=== PATIENT | male | born 1980 | race Caucasian/White ===

== ENCOUNTER 2016-09-16 20:14 | Emergency (ER) | payer OTHER, BC ==
[2016-09-16 20:18] VITALS: BP 148/93; PULSE 98; TEMP 98; BMI 33.9
[2016-09-16] MEDS ORDERED: IBUPROFEN 400 MG TABLET (FP) PO ONE ×2 (20:50→20:52)
--- NOTE | 2016-09-16 21:14 | PDOC ---
History of Present Illness - General Chief Complaint: Injury Stated Complaint: FALL/ WORK RELATED Time Seen by Provider: 09/16/16 20:34 - History of Present Illness Initial Comments: 09/16/16 21:24 CHIEF COMPLAINT: knee pain HISTORY OF PRESENT ILLNESS: 36 yo M with hx of diabetes presents to fast track with knee pain s/p fall. Patient was going home from work, slipped on ice and fell on his knee and side. PAtient denies injury to head or any LOC. No recent travel or sick contacts. 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 Denies tobacco, alcohol, illicit drug use. SURGICAL HISTORY: Denies ALLERGIES: No known drug allergies REVIEW OF SYSTEMS General/Constitutional: Denies fever or chills. Denies weakness, weight change. HEENT: Denies change in vision. Denies ear pain or discharge. Denies sore throat. Cardiovascular: Denies chest pain or shortness of breath. Respiratory: Denies cough, wheezing, or hemoptysis. Gastrointestinal: Denies nausea, vomiting, diarrhea or constipation. Denies rectal bleeding. Genitourinary: Denies dysuria, frequency, or change in urination. Musculoskeletal: Denies joint or muscle swelling or pain. Denies neck or back pain. Skin and breasts: Denies rash or easy bruising. Neurologic: Denies headache, vertigo, loss of consciousness, or loss of sensation. PHYSICAL EXAM General Appearance: Well-appearing, appropriately dressed. No apparent distress , no intoxication. HEENT: EOMI, PERRLA, normal ENT inspection, normal voice, TMs normal, pharynx normal. No conjunctival pallor. No photophobia, scleral icterus. Neck: Supple. Trachea midline. No tenderness, rigidity, carotid bruit, stridor , lymphadenopathy, or thyromegaly. Respiratory/Chest: Lungs CTAB. No shortness of breath, chest tenderness, respiratory distress, accessory muscle use. No crackles, rales, rhonchi, stridor , wheezing, dullness Cardiovascular: RRR. S1, S2. No JVD, murmur, bradycardia, tachycardia. Vascular Pulses: Dorsalis-Pedis (R): 2+, Dorsalis-Pedis (L): 2+ Gastrointestinal/Abdominal: Normal bowel sounds. Abdomen soft, non-distended. No tenderness or rebound tenderness. No organomegaly, pulsatile mass, guarding , hernia, hepatomegaly, splenomegaly. Lymphatic: No adenopathy, tenderness. Musculoskeletal/Extremities: Developing ecchymosis to L anterior knee. Normal inspection. FROM of all extremities, normal capillary refill. Pelvis Stable. No CVA tenderness. No tenderness to extremities, pedal edema, swelling, erythema or deformity. Integumentary: Appropriate color, dry, warm. 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 Fully oriented, alert. Appropriate mood/affect. Motor strength 5/5. No appreciable EOM palsy, facial droop or sensory deficit. Past History - Past Medical History Allergies/Adverse Reactions: Allergies Allergy/AdvReac Type Severity Reaction Status Date / Time No Known Allergies Allergy Verified 09/16/16 20:16 Home Medications: Ambulatory Orders Cyclobenzaprine HCl [Flexeril -] 10 mg PO HS #7 tablet 09/16/16 Ibuprofen 800 mg PO TID PRN #21 tablet 09/16/16 Anemia: No Asthma: No Cancer: No Cardiac Disorders: Yes (STARK PARKINSON WHITE.) CVA: No COPD: No CHF: No Dementia: No Diabetes: Yes GI Disorders: No Disorders: No HTN: Yes Hypercholesterolemia: No Liver Disease: No Suicide Attempt (Hx): No Seizures: No Thyroid Disease: No - Surgical History Orthopedic Surgery: Yes (Rt Knee arthroscopic) - Immunization History Td Vaccination: Yes Immunization Up to Date: No - Psycho/Social/Smoking Cessation Hx Anxiety: No Suicidal Ideation: No Smoking Status: No Smoking History: Never smoked Have you smoked in the past 12 months: No Number of Cigarettes Smoked Daily: 0 Hx Alcohol Use: Yes (SOCIAL) Drug/Substance Use Hx: No Substance Use Type: None Hx Substance Use Treatment: No Trauma Specific PMHX - Complaint Specific PMHX Back Injury: Yes *Physical Exam - Vital Signs Last Vital Signs Temp Pulse Resp BP Pulse Ox 98 F 98 H 18 148/93 98 09/16/16 20:16 09/16/16 20:16 09/16/16 20:16 09/16/16 20:16 09/16/16 20:16 Medical Decision Making - Medical Decision Making 09/16/16 21:25 36 yo M with hx of diabetes presents to fast track with pain to L knee s/p fall. -800 mg ibuprofen -x-ray left knee sent to pharm Patient states he also has a little back pain but has chronic back pain. -cyclobenzaprine, ibuprofen rx sent to pharm Advised patient to take meds as prescribed. Advised patient to f/u with ortho if pain persists. Advised patient of signs and symptoms for return to ER; patient verbalized understanding and agrees to plan. *DC/Admit/Observation/Transfer Diagnosis at time of Disposition: Fall Qualifiers: Encounter type: initial encounter Qualified Code(s): W19.XXXA - Unspecified fall, initial encounter Knee pain, acute Qualifiers: Laterality: left Qualified Code(s): M25.562 - Pain in left knee Chronic back pain Qualifiers: Back pain location: low back pain Back pain laterality: unspecified Sciatica presence: without sciatica Qualified Code(s): M54.5 - Low back pain - Discharge Dispostion Disposition: HOME Condition at time of disposition: Stable Admit: No - Prescriptions Prescriptions: Cyclobenzaprine HCl [Flexeril -] 10 mg PO HS #7 tablet Ibuprofen 800 mg PO TID PRN #21 tablet PRN Reason: Pain - Referrals Referrals: Steven Brown MD [Primary Care Provider] - Chase Morelos MD [Staff Physician] - - Patient Instructions Printed Discharge Instructions: DI for Low Back Pain, DI for Knee Pain, How To Perform RICE (Rest, Ice, Compress, Elevate) Additional Instructions: Please take medications as prescribed and follow up with orthopedics if pain persists. If you experience any loss of sensation, numbness or tingling of your leg, loss of bowel or bladder function, or any new or worsening symptoms, please return to the ER. - Post Discharge Activity Work/School Note: Back to Work
== END 2016-09-16 21:43 | disposition home or self-care (01) ==
LOC: JERFT 20:14
DX: M25.562 Pain in left knee (principal); M54.5 Low back pain; G89.29 Other chronic pain; W00.2XXA Other fall from one level to another due to ice and snow, initial encounter; Y93.01 Activity, walking, marching and hiking; Y92.238 Other place in hospital as the place of occurrence of the external cause; Y99.0 Civilian activity done for income or pay; E11.9 Type 2 diabetes mellitus without complications
CPT/HCPCS: 73562-TC-LT; 99281-25

== ENCOUNTER 2018-07-04 07:10 | Inpatient (IN) | payer BC, OTHER ==
--- NOTE | 2018-07-04 07:44 | PDOC ---
History of Present Illness - General Chief Complaint: Pain, Acute Stated Complaint: ABD PAIN Time Seen by Provider: 07/04/18 07:44 - History of Present Illness Initial Comments: 07/04/18 07:44 Mr. Bansal is a 38 yo male w/ pmh of WPW, HTN, IDDM who presents for evaluation of 2 day history of nausea and vomiting. Patient reports it began last night and got worse after he ate some baked ziti. Patient endorses vomiting once last night and once today with an additional episode of diarrhea this AM. All were non-blood (vomit non-bilious as well). Patient additionally endorses midline abdominal pain. Of note, several of patient's family members have had GB removed. The patient denies chest pain, shortness of breath, headache and dizziness. Denies fever, chills, and constipation. Denies dysuria, frequency, urgency and hematuria. Past History - Past Medical History Allergies/Adverse Reactions: Allergies Allergy/AdvReac Type Severity Reaction Status Date / Time No Known Allergies Allergy Verified 09/16/16 20:16 Home Medications: Ambulatory Orders Dulaglutide [Trulicity] 1.5 mg SQ WEEKLY 07/04/18 Esomeprazole Magnesium [Nexium 24Hr] 20 mg PO DAILY 07/04/18 Metformin HCl [Glucophage] 1,000 mg PO BID 07/04/18 Anemia: No Asthma: No Cancer: No Cardiac Disorders: Yes (STARK PARKINSON WHITE.) CVA: No COPD: No CHF: No Dementia: No Diabetes: Yes GI Disorders: No Disorders: No HTN: Yes Hypercholesterolemia: No Liver Disease: No Seizures: No Thyroid Disease: No - Surgical History Orthopedic Surgery: Yes (Rt Knee arthroscopic) - Immunization History Td Vaccination: Yes Immunization Up to Date: No - Suicide/Smoking/Psychosocial Hx Smoking Status: No Smoking History: Never smoked Have you smoked in the past 12 months: No Number of Cigarettes Smoked Daily: 0 Hx Alcohol Use: No Drug/Substance Use Hx: No Substance Use Type: None Hx Substance Use Treatment: No Review of Systems - Review of Systems Comments:: 07/04/18 07:44 GENERAL/CONSTITUTIONAL: No fever or chills. No weakness. HEAD, EYES, EARS, NOSE AND THROAT: No change in vision. No ear pain or discharge. No sore throat. CARDIOVASCULAR: No chest pain or shortness of breath RESPIRATORY: No cough, wheezing, or hemoptysis. GASTROINTESTINAL: No nausea, vomiting, diarrhea or constipation. GENITOURINARY: No dysuria, frequency, or change in urination. MUSCULOSKELETAL: No joint or muscle swelling or pain. No neck or back pain. SKIN: No rash NEUROLOGIC: No headache, vertigo, loss of consciousness, or change in strength/ sensation. ENDOCRINE: No increased thirst. No abnormal weight change HEMATOLOGIC/LYMPHATIC: No anemia, easy bleeding, or history of blood clots. ALLERGIC/IMMUNOLOGIC: No hives or skin allergy. *Physical Exam - Vital Signs Last Vital Signs Temp Pulse Resp BP Pulse Ox 98.6 F 122 H 16 119/80 97 07/04/18 07:23 07/04/18 07:23 07/04/18 07:23 07/04/18 07:23 07/04/18 07:23 - Physical Exam Comments: 07/04/18 07:44 GENERAL: Awake, alert, and fully oriented, in no acute distress HEAD: No signs of trauma, normocephalic, atraumatic EYES: PERRLA, EOMI, sclera anicteric, conjunctiva clear ENT: Auricles normal inspection, hearing grossly normal, nares patent, oropharynx clear without exudates. Moist mucosa NECK: Normal ROM, supple, no lymphadenopathy, JVD, or masses LUNGS: No distress, speaks full sentences, clear to auscultation bilaterally HEART: Regular rate and rhythm, normal S1 and S2, no murmurs, rubs or gallops, peripheral pulses normal and equal bilaterally. ABDOMEN: Soft, nontender, normoactive bowel sounds. No guarding, no rebound. No masses EXTREMITIES: Normal inspection, Normal range of motion, no edema. No clubbing or cyanosis. NEUROLOGICAL: Cranial nerves II through XII grossly intact. Normal speech, normal gait, no focal sensorimotor deficits SKIN: Warm, Dry, normal turgor, no rashes or lesions noted. ED Treatment Course - LABORATORY CBC & Chemistry Diagram: 07/04/18 08:30 07/04/18 08:30 Medical Decision Making - Medical Decision Making 07/04/18 11:19 Mr. Bansal is a 38 yo male w/ pmh as described who presents for evaluation of symptoms concerning for GERD vs. cholecystitis. Evaluation started with US for evaluation as well as pre-op labs and symptomatic relief w/ fluids, pepcid, maalox. 07/04/18 15:18 Patient US significant for cholelithiasis w/out over signs of cholecystitis. Patient discussed with surgery team who recommended CT abd/pelvis w/ IV/oral contrast. This was done with findings again consistent w/ cholelithiasis w/out signs of cholecystitis. Admitting patient for further evaluation and surgical consult. *DC/Admit/Observation/Transfer Diagnosis at time of Disposition: Cholecystitis - Discharge Dispostion Decision to Admit order: Yes - Referrals Referrals: Steven Brown MD [Primary Care Provider] - - Patient Instructions - Post Discharge Activity
[2018-07-04] MEDS ORDERED: SODIUM CHLORIDE 1,000 ML IV STA ×2 (07:53→11:27)
[2018-07-04] MEDS ORDERED: FAMOTIDINE 20 MG/50 ML IVPB 20 MG/50 ML MG IVPB ONE ×2 (07:54→08:34)
[2018-07-04] MEDS ORDERED: MAG HYDROX/AL HYDROX/SIMETH 30 ML UNIT-DOSE CUP PO ONE (07:54)
[2018-07-04] MEDS ORDERED: ONDANSETRON 4 MG/2 ML VIAL IVPUSH ONE (07:56)
[2018-07-04] MEDS ORDERED: ONDANSETRON 4 MG/2 ML VIAL ONE (08:34)
[2018-07-04] MEDS ORDERED: MAG HYDROX/AL HYDROX/SIMETH 30 ML UNIT-DOSE CUP ONE (08:34)
[2018-07-04 08:59] LABS: BASO % 0.2 % (0-2.0); EOS % 4.7 % (0-4.5); HEMATOCRIT 48.5 % (35.4-49); HEMOGLOBIN 16.4 GM/dL (11.7-16.9); LYMPH % 6.6 % (8-40); MCH 28.8 pg (25.7-33.7); MCHC 33.9 g/dl (32.0-35.9); MEAN CELL VOLUME 84.9 fl (80-96); MEAN PLT VOLUME 8.4 fl (7.5-11.1); MONO % 5.6 % (3.8-10.2); NEUT % 82.9 % (42.8-82.8); PLATELET COUNT 182 K/MM3 (134-434); RBC 5.72 M/mm3 (4.00-5.60); RDW 13.1 % (11.9-15.9)
[2018-07-04 09:07] LABS: INR 1.14 (0.83-1.09); PROTHROMBIN TIME (PATIENT) 13.5 SEC (9.7-13.0)
[2018-07-04 09:10] LABS: ACTIVATED PTT 27.5 SECONDS (25.2-36.5)
--- NOTE | 2018-07-04 10:12 | PDOC ---
Attending Attestation - Resident Resident Name: DestinprincenatiRah - ED Attending Attestation I have performed the following: I have examined & evaluated the patient, The case was reviewed & discussed with the resident, I agree w/resident's findings & plan - HPI HPI: 07/04/18 10:04 38y/o M h/o WPW p/w persistent epigastric pain with n/v since yesterday. similar episode 2 weeks ago resolved, started himself on nexium with temporary improvement, but pain returned now since last night, n/v again. no f/c, no cp - Physicial Exam PE: 07/04/18 10:12 afebrile, tachy, uncomfortable no jaundice/pallor s1s2 rrr, ctab soft/nd. diffuse discomfort to palpation, guarding in RUQ with positive figueredo' s. no cvat no rash - Medical Decision Making 07/04/18 10:12 38y/o M with worsening epigastric pain/n/v. exam localized to ruq, concerning for gallbladder disease (family with same), r/o gastritis/pancreatitis, less likely urine. labs, ua ekg ruq sono pain control, nausea control reassess Heart Score/ECG Review #1 ECG reviewed & interpreted by me at: 08:33 General ECG Interpretation: Sinus Rhythm, Normal Rate (104), Normal Intervals ( WPW, qtc 502), No acute ischemic changes (st with TWI I/AVL)
[2018-07-04 10:13] LABS: ALBUMIN 3.7 g/dl (3.4-5.0); ALK PHOS 25 U/L (45-117); BILIRUBIN,TOTAL 0.9 mg/dL (0.2-1); BLOOD UREA NITROGEN 21 mg/dL (7-18); CALCIUM 8.3 mg/dL (8.5-10.1); CO2 30 mmol/L (21-32); CREATININE 0.8 mg/dL (0.55-1.3); GLUCOSE,RANDOM 170 mg/dL (74-106); LIPASE 144 U/L (73-393); POTASSIUM 4.3 mmol/L (3.5-5.1); SGOT/AST 8 U/L (15-37); SGPT/ALT 19 U/L (13-61); SODIUM 139 mmol/L (136-145); TOT PROT 6.2 g/dl (6.4-8.2)
[2018-07-04 10:21] LABS: ANION GAP 8 MMOL/L (8-16); CHLORIDE 102 mmol/L (98-107)
[2018-07-04] MEDS ORDERED: morphine CARPU-JECT 4 MG/1 ML DISP.SYRIN IVPUSH ONE (11:55)
--- NOTE | 2018-07-04 12:29 | EKG ---
Test Reason : Blood Pressure : / mmHG Vent. Rate : 104 BPM Atrial Rate : 104 BPM P-R Int : 126 ms QRS Dur : 116 ms QT Int : 382 ms P-R-T Axes : 062 -34 110 degrees QTc Int : 502 ms SINUS TACHYCARDIA [id number] PATTERN ABNORMAL ECG Confirmed by MD TIFFANY, REHAN ([id number]) on 07/04/2018 12:29:41 PM Referred By: Confirmed By:REHAN ALLEN MD
[2018-07-04] MEDS ORDERED: MORPHINE SULFATE 2 MG/ML VIAL ONE (13:23)
[2018-07-04] MEDS: SODIUM CHLORIDE 1,000 ML IV SCH (13:36)
[2018-07-04] MEDS ORDERED: ONDANSETRON 4 MG/2 ML VIAL IVPUSH PRN (16:19)
--- NOTE | 2018-07-04 16:27 | HP ---
Admitting History and Physical - Primary Care Physician PCP: Steven Brown - Admission Chief Complaint: Epigastric pain with nausea and vomiting History of Present Illness: 38 yrs old male H/O WPW EKG (no arrythmia), T2DM , Gastritis (scoped in 2011) present with c/o nausea, epigastric pain and 2 episodes of vomiting started last night after having, patient had an episode of vomiting contains ingested food followed by nausea and epigastric pain, intermittent 8/10, 2nd episode of vomiting this am , also c/o subjective chills denies any diarrhea or constipation, patient has family H/O Gal stone brother and father both have cholycystectomy at young age in the ED w/u shows elevated TWBC, normal lFTs, CT abd and ultrasound shows Cholelthiasis no acute cholycystitis, evaluted by Surgery consult. 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 Home Medications - Allergies Allergies/Adverse Reactions: Allergies Allergy/AdvReac Type Severity Reaction Status Date / Time No Known Allergies Allergy Verified 09/16/16 20:16 - Home Medications Home Medications: Ambulatory Orders Dulaglutide [Trulicity] 1.5 mg SQ WEEKLY 07/04/18 Esomeprazole Magnesium [Nexium 24Hr] 20 mg PO DAILY 07/04/18 Metformin HCl [Glucophage] 1,000 mg PO BID 07/04/18 Family Disease History - Family Disease History Family Disease History: Diabetes: Father (Cholelthiasis), Other: Father, Brother (Cholelthiasis) Review of Systems - Review of Systems Constitutional: reports: Chills, Diaphoresis, Lethargy. denies: Fever Eyes: denies: Blind Spots, Blurred Vision, Double Vision HENT: denies: Difficult Swallowing, Ear Discharge Neck: denies: Decreased ROM, Lumps, Pain on Movement Cardiovascular: denies: Chest Pain, Edema, Palpitations Respiratory: denies: Cough, Exercise Intolerance, Hemoptysis Gastrointestinal: reports: Abdominal Pain, Bloating, Nausea, Vomiting Genitourinary: denies: Burning, Discharge, Dysuria Musculoskeletal: reports: Back Pain, Crepitus, Decreased ROM Neurological: denies: Change in LOC, Change in Speech, Confusion Endocrine: denies: Excessive Sweating, Flushing, Increased Hunger Hematology/Lymphatic: denies: Easily Bruised Physical Examination Vital Signs: Vital Signs Temperature 98.6 F 07/04/18 15:18 Pulse Rate 100 H 07/04/18 15:18 Respiratory Rate 16 07/04/18 15:18 Blood Pressure 113/82 07/04/18 15:18 O2 Sat by Pulse Oximetry (%) 97 07/04/18 15:18 Constitutional: Yes: Well Nourished, Mild Distress HENT: Yes: Atraumatic, Normocephalic Neck: Yes: Supple, Trachea Midline, Decreased ROM Respiratory: Yes: CTA Bilaterally Gastrointestinal: Yes: Normal Bowel Sounds, Tenderness, Epigastrium, Vomiting, Other (Rt UQ Tenderness) Edema: No Edema: RUE: 1+, LLE: 1+ Peripheral Pulses: Left Doralis Pedis: 1+, Right Dorsalis Pedis: 1+ Neurological: Yes: Alert, Oriented, Cran Nerves II-XII Intact ...Motor Strength: WNL, LUE, LLE, RUE, RLE Labs: CBC, BMP 07/04/18 08:30 07/04/18 08:30 Imaging - Results Cat Scan: Report Reviewed (Cholelithiasis) Ultrasound: Report Reviewed (Cholelthiasis) Problem List - Problems (1) Abdominal pain Assessment/Plan: Present with abd nausea, vomiting, elevated TWBC , CT abd and ultrasound shows cholelthiasis normal lipse, CBD and LFTs possibility of billiarry colick evaluated by Surgery consult recommended HIDA scan F/U serial CBC and abd exam, GI consult. Code(s): R10.9 - UNSPECIFIED ABDOMINAL PAIN (2) Cholelithiasis Assessment/Plan: No Radiological signs of acute cholycystitis will F/U surgery recommendations Code(s): K80.20 - CALCULUS OF GALLBLADDER W/O CHOLECYSTITIS W/O OBSTRUCTION (3) Nausea & vomiting Assessment/Plan: IV Zofran and PPI f/u GI recommendations Code(s): R11.2 - NAUSEA WITH VOMITING, UNSPECIFIED Qualifiers: Vomiting type: unspecified Vomiting Intractability: non-intractable Qualified Code(s): R11.2 - Nausea with vomiting, unspecified (4) DMII (diabetes mellitus, type 2) Assessment/Plan: Hold Home meds F/U Accucheck q 6 hrly with correction dose insulin Code(s): E11.9 - TYPE 2 DIABETES MELLITUS WITHOUT COMPLICATIONS (5) Leukocytosis Assessment/Plan: most likely reactive will observe closely off abx Code(s): D72.829 - ELEVATED WHITE BLOOD CELL COUNT, UNSPECIFIED Qualifiers: Leukocytosis type: bandemia Qualified Code(s): D72.825 - Bandemia (6) Lysev-Uuucricvs-Iysao (WPW) syndrome Assessment/Plan: No H/O Plapittaion or arrythmia no active issue Code(s): I45.6 - PRE-EXCITATION SYNDROME
[2018-07-04 16:51] LABS: URINE APPEARANCE Clear; URINE BILIRUBIN Negative (<2.0 mg/dL); URINE COLOR Yellow; URINE GLUCOSE (UA) Negative (NEGATIVE); URINE KETONE 1+ (NEGATIVE); URINE LEUK ESTERASE Negative (NEGATIVE); URINE NITRITE Negative (NEGATIVE); URINE PROTEIN 1+ (NEGATIVE)
[2018-07-04] MEDS: INSULIN SLIDING SCALE (NOVOLOG) 1 VIAL SQ SCH ×2 (17:21→21:54)
--- NOTE | 2018-07-04 17:42 | CONSULT ---
Consult Consult Specialty:: General Surgery Referred by:: Dr. Sarmiento Reason for Consultation:: cholelithiasis, abd pain, leukocytosis - History of Present Illness Chief Complaint: epigastric pain, n/v, diarrhea History of Present Illness: 38yo obese M with WPW, DM2, h/o gastritis, esophageal candidiasis, prepyloric erosions on EGD 2011 (Dr. Grande), began having epigastric pain about 2 wks ago, which came and went, but was not fully relieved with daily Nexium and tums , associated with mild subjective f/c and maybe some diarrhea, lasted 4-5 days, then returned yesterday, associated with N/V, subjective chills and night sweating, diarrhea this morning, prompting ER visit. He had US showing stones and negative HIDA with normal EF 2013 by review of [facility]. His mother, father and brother have all had their gallbladders removed, the latter just last month. He describes his pain as epigastric in distribution, not really favoring one side or the other. He had ziti last meal, and vomit was mostly food. In ER, his wbc is 18K, LFTs and lipase are normal, BUN 21 with normal Cr, 1+ ketones in urine, glucose ok. US was done showing gallstones but no sign of cholecystitis. CT was then done showing only that as well, no clear source for leukocytosis. He has had IVF, and surgery is asked to assess. He is seen in ER holding with father at bedside. He has just returned from bathroom, having had some urine and diarrhea (presumed from oral contrast). His pain is better, but he did have morphine earlier. He is not hungry. - History Source History Provided By: Patient Limitations to Obtaining History: No Limitations - Past Medical History Cardio/Vascular: Yes: Other (pgxyg-jaycfqwrm-wokxt Syndrome) Gastrointestinal: Yes: Gastritis (prepyloric erosions at EGD 2013), Other ( esophageal candidiasis 2013) Hepatobiliary: Yes: Cholelithiasis Musculoskeletal: Yes: Chronic low back pain (and knee pain) Endocrine: Yes: Diabetes Mellitus - Past Surgical History Past Surgical History: Yes: Tonsillectomy, Upper Endoscopy (2013 [facility]) - Alcohol/Substance Use Hx Alcohol Use: Yes (social/occasional) History of Substance Use: reports: None - Smoking History Smoking history: Never smoked Have you smoked in the past 12 months: No - Social History Usual Living Arrangement: With Parent ADL: Independent 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 also uses Aleve 1-2 in am some days for back/knee pain - last 2- 3 days ago;. ibuprofen 400-600mg some evenings for same - also not in last few days Family Disease History - Family Disease History Family Disease History: Diabetes: Father (aflutter/fib s/p ablation x2; gallbladder out), Heart Disease: Father, Other: Father, Mother (htn; gallbladder out), Brother (gallbladder out) Review of Systems - Review of Systems Constitutional: reports: Chills, Fever (subjective with hpi), Loss of Appetite, Night Sweats (with hpi), Unintentional Wgt. Loss (partly - has lost ~100lbs in 2 yrs, partly intentional, partly not (related to diabetes? per pt)) Eyes: denies: Blurred Vision, Recent Change in Vision HENT: denies: Difficult Swallowing, Throat Pain Neck: denies: Swollen Glands, Tenderness Cardiovascular: reports: Palpitations (about once a year, not for a month or two ). denies: Chest Pain Respiratory: denies: Cough, SOB Gastrointestinal: reports: Abdominal Pain (with hpi), Diarrhea (with hpi), Nausea (with hpi), Vomiting (with hpi). denies: Constipation Genitourinary: denies: Burning, Dysuria Musculoskeletal: reports: Back Pain, Joint Pain (knees) Integumentary: denies: Change in Color, Rash Neurological: denies: Dizziness, Headache Physical Exam Vital Signs: Vital Signs Temperature 98.3 F 07/04/18 16:54 Pulse Rate 101 H 07/04/18 16:54 Respiratory Rate 16 07/04/18 16:54 Blood Pressure 113/80 07/04/18 16:54 O2 Sat by Pulse Oximetry (%) 97 07/04/18 15:18 Constitutional: Yes: Well Nourished, No Distress, Calm Eyes: Yes: Conjunctiva Clear, EOM Intact. No: Sclera Icterus HENT: Yes: Atraumatic, Normocephalic Neck: Yes: Supple, Trachea Midline Cardiovascular: Yes: Regular Rate and Rhythm, Other (WPW on EKG). No: Murmur Respiratory: Yes: Regular, CTA Bilaterally Gastrointestinal: Yes: Normal Bowel Sounds, Soft, Abdomen, Obese, Hernia (small umbilical palpable), Tenderness (RUQ and LUQ similar amount, no R/G), Tenderness , Epigastrium. No: Distention, Tenderness, Rebound ...Rectal Exam: Yes: Deferred Renal/: No: CVA Tenderness - Left, CVA Tenderness - Right Musculoskeletal: No: Joint Stiffness, Joint Swelling Extremities: No: Cool, Cyanosis Edema: No Peripheral Pulses WNL: Yes Integumentary: Yes: Tattoos. No: Jaundice, Rash Neurological: Yes: Alert, Oriented. No: Unsteady Gait (ambulating ok) Psychiatric: Yes: Alert, Oriented Labs: CBC, BMP 07/04/18 08:30 07/04/18 08:30 CMP Sodium 139 mmol/L (136-145) 07/04/18 08:30 Potassium 4.3 mmol/L (3.5-5.1) 07/04/18 08:30 Chloride 102 mmol/L (98-107) 07/04/18 08:30 Carbon Dioxide 30 mmol/L (21-32) 07/04/18 08:30 Anion Gap 8 MMOL/L (8-16) 07/04/18 08:30 BUN 21 mg/dL (7-18) H 07/04/18 08:30 Creatinine 0.8 mg/dL (0.55-1.3) 07/04/18 08:30 Creat Clearance w eGFR > 60 (>60) 07/04/18 08:30 POC Glucometer 119.60130 UNITS (80-120) 07/04/18 17:15 Random Glucose 170 mg/dL (74-106) H 07/04/18 08:30 Calcium 8.3 mg/dL (8.5-10.1) L 07/04/18 08:30 Total Bilirubin 0.9 mg/dL (0.2-1) 07/04/18 08:30 AST 8 U/L (15-37) L 07/04/18 08:30 ALT 19 U/L (13-61) 07/04/18 08:30 Alkaline Phosphatase 25 U/L (45-117) L 07/04/18 08:30 Creatine Kinase 79 IU/L (26-308) 07/04/18 08:30 Troponin I < 0.02 ng/ml (0.00-0.05) 07/04/18 08:30 Total Protein 6.2 g/dl (6.4-8.2) L 07/04/18 08:30 Albumin 3.7 g/dl (3.4-5.0) 07/04/18 08:30 Lipase 144 U/L (73-393) 07/04/18 08:30 INR, PTT INR 1.14 (0.83-1.09) H 07/04/18 08:30 Urine Test Results Urine Color Yellow 07/04/18 15:16 Urine Appearance Clear 07/04/18 15:16 Urine pH 6.0 (5.0-8.0) 07/04/18 15:16 Ur Specific Starbuck 1.010 (1.010-1.035) 07/04/18 15:16 Urine Protein 1+ (NEGATIVE) H 07/04/18 15:16 Urine Glucose (UA) Negative (NEGATIVE) 07/04/18 15:16 Urine Ketones 1+ (NEGATIVE) H 07/04/18 15:16 Urine Blood Negative (NEGATIVE) 07/04/18 15:16 Urine Nitrite Negative (NEGATIVE) 07/04/18 15:16 Urine Bilirubin Negative (<2.0 mg/dL) 07/04/18 15:16 Ur Leukocyte Esterase Negative (NEGATIVE) 07/04/18 15:16 dehydrated by labs high wbc but LFTs, lipase normal UA ok but dry Imaging - Results Cat Scan: Report Reviewed, Image Reviewed (images personally reviewed and discussed with Dr. Demarco by phone - gallstones noted, no signs cholecystitis, pancreatitis, appendicitis, diverticulitis, no obstruction, no free air or fluid ) Ultrasound: Report Reviewed, Image Reviewed (images reviewed - + gallstones, no wall thickening or pericholecystic fluid, no ductal dilation, no signs cholecystitis) Problem List - Problems (1) Calculus of gallbladder without cholecystitis without obstruction Assessment/Plan: admitted to medicine NPO/IVF - generous hydration trend labs, including LFTs, lipase would hold on abx for now pain meds prn - would use nonnarcotics (IV tylenol) first line, NO morphine prior to HIDA if pain is still that bad, could use dilaudid low dose GI/DVT prophylaxis - would continue PPI, as pt is on at home; SCDs, ambulation if gallbladder is source of leukocytosis, would expect some abnormalities in imaging other than just stones, and RUQ > LUQ or epigastric pain/tenderness, neither of which are evident would consult GI Dr. Grande, as pt is known to him from prior scope, to consider repeating EGD HIDA scan in am if positive and cystic duct IS blocked, would then start antibiotics and discuss cholecystectomy with pt if negative, further recommendations pending lab trend and GI consultation will follow with you discussed with Dr. Yarbrough Code(s): K80.20 - CALCULUS OF GALLBLADDER W/O CHOLECYSTITIS W/O OBSTRUCTION (2) Epigastric pain Code(s): R10.13 - EPIGASTRIC PAIN (3) Leukocytosis Assessment/Plan: wbc 18 trend in am Code(s): D72.829 - ELEVATED WHITE BLOOD CELL COUNT, UNSPECIFIED Qualifiers: Leukocytosis type: bandemia Qualified Code(s): D72.825 - Bandemia (4) Nausea & vomiting Assessment/Plan: zofran prn Code(s): R11.2 - NAUSEA WITH VOMITING, UNSPECIFIED Qualifiers: Vomiting type: unspecified Vomiting Intractability: non-intractable Qualified Code(s): R11.2 - Nausea with vomiting, unspecified (5) Obfgv-Hkmzdxsxa-Xjsxt (WPW) syndrome Code(s): I45.6 - PRE-EXCITATION SYNDROME (6) Obesity (BMI 30.0-34.9) Code(s): E66.9 - OBESITY, UNSPECIFIED
[2018-07-04 18:10] LABS: EPI CELLS RARE /HPF (FEW); URINE MUCUS MANY
[2018-07-04] MEDS: ACETAMINOPHEN 1000 MG/100 ML VIAL (NON FORMULARY) IVPB PRN (23:58)
[2018-07-05] MEDS: SODIUM CHLORIDE 1,000 ML IV SCH ×3 (00:03→13:38)
[2018-07-05 02:21] VITALS: BMI 31.7
[2018-07-05] MEDS: INSULIN SLIDING SCALE (NOVOLOG) 1 VIAL SQ SCH ×4 (06:14→21:16)
[2018-07-05 07:22] LABS: BASO % 0.2 % (0-2.0); EOS % 15.8 % (0-4.5); HEMATOCRIT 39.2 % (35.4-49); HEMOGLOBIN 13.6 GM/dL (11.7-16.9); LYMPH % 30.3 % (8-40); MCH 29.4 pg (25.7-33.7); MCHC 34.7 g/dl (32.0-35.9); MEAN CELL VOLUME 84.8 fl (80-96); MEAN PLT VOLUME 8.3 fl (7.5-11.1); MONO % 7.9 % (3.8-10.2); NEUT % 45.8 % (42.8-82.8); PLATELET COUNT 142 K/MM3 (134-434); RBC 4.63 M/mm3 (4.00-5.60); WHITE BLOOD COUNT 7.8 K/mm3 (4.0-10.0)
[2018-07-05 08:24] LABS: ALBUMIN 2.9 g/dl (3.4-5.0); ALK PHOS 23 U/L (45-117); ANION GAP 8 MMOL/L (8-16); BILIRUBIN,TOTAL 0.9 mg/dL (0.2-1); BLOOD UREA NITROGEN 20 mg/dL (7-18); CALCIUM 7.5 mg/dL (8.5-10.1); CHLORIDE 108 mmol/L (98-107); CO2 25 mmol/L (21-32); CREATININE 0.6 mg/dL (0.55-1.3); GLUCOSE,RANDOM 81 mg/dL (74-106); POTASSIUM 3.6 mmol/L (3.5-5.1); SGOT/AST 8 U/L (15-37); SGPT/ALT 14 U/L (13-61); SODIUM 141 mmol/L (136-145); TOT PROT 5.1 g/dl (6.4-8.2)
[2018-07-05] MEDS: PANTOPRAZOLE SODIUM 40 MG VIAL IVPUSH SCH (10:17)
[2018-07-05] MEDS: ACETAMINOPHEN 1000 MG/100 ML VIAL (NON FORMULARY) IVPB PRN (13:31)
--- NOTE | 2018-07-05 17:22 | PN ---
Progress Note, Physician Chief Complaint: Mr Bansal complains of epigastric pain. Denies cp or sob. - Current Medication List Current Medications: Active Medications Acetaminophen (Ofirmev Injection -) 1,000 mg IVPB Q6H PRN PRN Reason: Pain Level 4 - 10 Last Admin: 07/05/18 13:31 Dose: 1,000 mg Sodium Chloride (Normal Saline -) 1,000 mls @ 125 mls/hr IV ASDIR [facility] Last Admin: 07/05/18 13:38 Dose: Not Given Insulin Aspart (Novolog Vial Sliding Scale -) 1 vial SQ ACHS [facility]; Protocol Last Admin: 07/05/18 13:38 Dose: Not Given Ondansetron HCl (Zofran Injection) 4 mg IVPUSH Q6H PRN PRN Reason: NAUSEA Pantoprazole Sodium (Protonix Iv) 40 mg IVPUSH DAILY [facility] Last Admin: 07/05/18 10:17 Dose: 40 mg - Objective Vital Signs: Vital Signs Temperature 36.6 C 07/05/18 13:33 Pulse Rate 96 H 07/05/18 13:33 Respiratory Rate 18 07/05/18 13:33 Blood Pressure 126/73 07/05/18 13:33 O2 Sat by Pulse Oximetry (%) 97 07/04/18 21:00 Constitutional: Yes: No Distress, Calm, Obese Cardiovascular: Yes: Regular Rate and Rhythm. No: Gallop, Murmur, Rub Respiratory: Yes: Regular, CTA Bilaterally. No: Rales, Rhonchi, Wheezes Gastrointestinal: Yes: Normal Bowel Sounds, Soft, Tenderness (LUQ). No: Distention Extremities: Yes: WNL Edema: No Labs: CBC, BMP 07/05/18 06:10 07/05/18 06:10 INR, PTT INR 1.14 (0.83-1.09) H 07/04/18 08:30 Problem List - Problems (1) Calculus of gallbladder without cholecystitis without obstruction Assessment/Plan: -appreciate surgery assistance -agree with holding antibiotics -HIDA scan reviewed -surgery to decide if lap david is appropriate in this setting Code(s): K80.20 - CALCULUS OF GALLBLADDER W/O CHOLECYSTITIS W/O OBSTRUCTION (2) Epigastric pain Assessment/Plan: -GI following -planning for EGD Code(s): R10.13 - EPIGASTRIC PAIN (3) Obesity (BMI 30.0-34.9) Assessment/Plan: -outpatient weight loss plan Code(s): E66.9 - OBESITY, UNSPECIFIED (4) DMII (diabetes mellitus, type 2) Assessment/Plan: -SSI Code(s): E11.9 - TYPE 2 DIABETES MELLITUS WITHOUT COMPLICATIONS (5) Iqmtc-Dmytvngfz-Drdhm (WPW) syndrome Assessment/Plan: -noted Code(s): I45.6 - PRE-EXCITATION SYNDROME
--- NOTE | 2018-07-05 17:58 | PN ---
Progress Note, Physician History of Present Illness: 38yo obese M with WPW, DM2, h/o gastritis, esophageal candidiasis, prepyloric erosions on EGD 2011 (Dr. Grande), with epigastric pain associated with n/v, diarrhea. US was done showing gallstones but no sign of cholecystitis. CT was then done showing only that as well, no clear source for leukocytosis. HIDA was done this morning showing gallbladder filling at 20 minutes, fully within the hour, excluding cystic duct obstruction. He is seen in his bed, with father at bedside, having been up ambulating today and had a small formed BM earlier with second time urinating today. His epigastric pain was better earlier, got tylenol a few hours ago, and he now states it is starting to return. He is NPO on fluids, and fingerstick just now is 70. - Current Medication List Current Medications: Active Medications Acetaminophen (Ofirmev Injection -) 1,000 mg IVPB Q6H PRN PRN Reason: Pain Level 4 - 10 Last Admin: 07/05/18 13:31 Dose: 1,000 mg Sodium Chloride (Normal Saline -) 1,000 mls @ 125 mls/hr IV ASDIR [facility] Last Admin: 07/05/18 13:38 Dose: Not Given Insulin Aspart (Novolog Vial Sliding Scale -) 1 vial SQ [facility]; Protocol Last Admin: 07/05/18 17:33 Dose: Not Given Ondansetron HCl (Zofran Injection) 4 mg IVPUSH Q6H PRN PRN Reason: NAUSEA Pantoprazole Sodium (Protonix Iv) 40 mg IVPUSH DAILY [facility] Last Admin: 07/05/18 10:17 Dose: 40 mg - Objective Vital Signs: Vital Signs Temperature 97.9 F 07/05/18 13:33 Pulse Rate 96 H 07/05/18 13:33 Respiratory Rate 18 07/05/18 13:33 Blood Pressure 126/73 07/05/18 13:33 O2 Sat by Pulse Oximetry (%) 97 07/04/18 21:00 Constitutional: Yes: Well Nourished, No Distress, Calm Eyes: Yes: Conjunctiva Clear, EOM Intact HENT: Yes: Atraumatic, Normocephalic Gastrointestinal: Yes: Soft, Abdomen, Obese, Tenderness (RUQ slightly more than LUQ but similar, no R/G, also mild RLQ at first but not on second palpation), Tenderness, Epigastrium ...Rectal Exam: Yes: Deferred Musculoskeletal: No: Joint Stiffness, Joint Swelling Extremities: No: Cool, Cyanosis Integumentary: Yes: Tattoos. No: Jaundice, Rash Neurological: Yes: Alert, Oriented Labs: CBC, BMP 07/05/18 06:10 07/05/18 06:10 CMP Sodium 141 mmol/L (136-145) 07/05/18 06:10 Potassium 3.6 mmol/L (3.5-5.1) 07/05/18 06:10 Chloride 108 mmol/L (98-107) H 07/05/18 06:10 Carbon Dioxide 25 mmol/L (21-32) 07/05/18 06:10 Anion Gap 8 MMOL/L (8-16) 07/05/18 06:10 BUN 20 mg/dL (7-18) H 07/05/18 06:10 Creatinine 0.6 mg/dL (0.55-1.3) 07/05/18 06:10 Creat Clearance w eGFR > 60 (>60) 07/05/18 06:10 POC Glucometer 80 UNITS (80-120) 07/05/18 13:36 Random Glucose 81 mg/dL (74-106) 07/05/18 06:10 Hemoglobin A1c % 6.4 % (4.2-6.3) H 07/05/18 06:10 Calcium 7.5 mg/dL (8.5-10.1) L 07/05/18 06:10 Total Bilirubin 0.9 mg/dL (0.2-1) 07/05/18 06:10 AST 8 U/L (15-37) L 07/05/18 06:10 ALT 14 U/L (13-61) 07/05/18 06:10 Alkaline Phosphatase 23 U/L (45-117) L 07/05/18 06:10 Total Protein 5.1 g/dl (6.4-8.2) L 07/05/18 06:10 Albumin 2.9 g/dl (3.4-5.0) L 07/05/18 06:10 Lipase 143 U/L (73-393) 07/05/18 06:10 wbc down to normal, BUN down slightly, Cr from 0.8 glucose on low side A1C good/normal LFTs and lipase still normal - ....Imaging Other: Report Reviewed, Image Reviewed (HIDA images personally reviewed - gallbladder visualized at 20 min, fills within the hour, no evidence of obstruction of cystic duct) Problem List - Problems (1) Calculus of gallbladder without cholecystitis without obstruction Assessment/Plan: continue NPO/IVF - will change to maintenance fluids trend labs would hold on abx for now pain meds prn - would use nonnarcotics (IV tylenol) first line GI/DVT prophylaxis - would continue PPI, as pt is on at home; SCDs, ambulation GI consulted - saw and spoke with Dr. Knight, who has seen him and agrees with EGD - will try to arrange for tomorrow HIDA negative - doubt gallbladder is primary source of pain, but will await EGD results will follow up Code(s): K80.20 - CALCULUS OF GALLBLADDER W/O CHOLECYSTITIS W/O OBSTRUCTION (2) Epigastric pain Code(s): R10.13 - EPIGASTRIC PAIN (3) Leukocytosis Assessment/Plan: normalized Code(s): D72.829 - ELEVATED WHITE BLOOD CELL COUNT, UNSPECIFIED Qualifiers: Leukocytosis type: bandemia Qualified Code(s): D72.825 - Bandemia (4) Nausea & vomiting Code(s): R11.2 - NAUSEA WITH VOMITING, UNSPECIFIED Qualifiers: Vomiting type: unspecified Vomiting Intractability: non-intractable Qualified Code(s): R11.2 - Nausea with vomiting, unspecified (5) Jftmk-Zmofijcdk-Mqsfi (WPW) syndrome Code(s): I45.6 - PRE-EXCITATION SYNDROME (6) Obesity (BMI 30.0-34.9) Code(s): E66.9 - OBESITY, UNSPECIFIED
--- NOTE | 2018-07-05 18:04 | CONS ---
DATE OF CONSULTATION: 07/05/2018 GASTROINTESTINAL CONSULTATION The patient is a 38-year-old man with a past medical history of Qmzdf-Eerawofws-Nsetr, diabetes and a history of gastritis with esophagitis secondary to candidiasis and erosions on an upper endoscopy which was performed by Dr. Grande in 2011. Apparently, two weeks ago, the patient began having epigastric pain and took Nexium as well as Tums with no clear relief of his symptoms. On Tuesday, he once again describes burning epigastric abdominal pain, this time with nausea, vomiting and a couple episodes of loose bowel movements. He denies any melena or hematochezia in the stool. He has had no fevers or chills. He has had no recent travel or antibiotic use. He states he is feeling somewhat better at this time. He has not had a colonoscopy in the past. PAST MEDICAL AND SURGICAL HISTORY: These are as listed in the HPI. SOCIAL HISTORY: He chews tobacco. He drinks socially very rarely. FAMILY HISTORY: Significant for cholelithiasis. Apparently, each of his parents as well as his brother recently had a cholecystectomy. ALLERGIES: NO KNOWN DRUG ALLERGIES. HOME MEDICATIONS: 1. Trulicity. 2. Nexium. 3. Glucophage. REVIEW OF SYSTEMS: Negative except for pertinent positives in the HPI. PHYSICAL EXAMINATION: Vital Signs: Temperature 97, pulse 96, blood pressure 126/73, respiratory rate 18. General: The patient is in no acute distress. HEENT: Anicteric sclerae. Cardiovascular: S1, S2. Regular rate and rhythm. Lungs: Bilaterally clear to auscultation. Abdomen: Soft and nontender. Extremities: No edema. LABS: White blood cell count on admission 18, currently 7.8. Hemoglobin 13.5, hematocrit 39, MCV 84, platelet count 142, INR 1.1, sodium 141, potassium 3.6, BUN 20, creatinine 0.6, hemoglobin A1c 6.4, calcium 7.5, total bilirubin 0.9, AST 8 , ALT 14, alkaline phosphatase 23, lipase 143. Urine with 1+ protein and 1+ ketones. The patient had an abdominal and pelvic CT scan performed in the emergency room with contrast which revealed cholelithiasis but no other acute pathology. He had a HIDA scan but the final results have not yet been posted. However, it appears to have been within normal limits. IMPRESSION: Epigastric abdominal pain, nausea, vomiting, as well as a couple episodes of loose bowel movements. These findings may be secondary to an infectious etiology. However, peptic ulcer disease cannot be excluded at this time. I doubt his current symptoms are secondary to acute cholecystitis, considering his HIDA scan appears to be normal and his liver tests are within normal limits. However, biliary colic is still included in the differential diagnosis at this time. RECOMMENDATIONS: 1. Protonix 40 mg daily 40 mg IV daily. 2. If final results from the HIDA scan are normal, would start him on a clear liquid diet; a.m. labs ; avoid NSAIDs. 3. I will tentatively make him n.p.o. for a diagnostic upper endoscopy tomorrow. Risk including but not limited to perforation, bleeding sedation missed lesion infection explained in detail. His plan of care was discussed with Dr. Fox. DO KOBY ALANIZ/[id number] MTDD
[2018-07-05] MEDS ORDERED: D5-1/2NS+20 MEQ KCL - 20 MEQ/1,000 ML INFUS.BAG IV SCH (18:15)
[2018-07-06] MEDS: INSULIN SLIDING SCALE (NOVOLOG) 1 VIAL SQ SCH ×4 (06:29→21:52)
[2018-07-06 07:15] LABS: BASO % 0.2 % (0-2.0); EOS % 18.6 % (0-4.5); HEMOGLOBIN 13.1 GM/dL (11.7-16.9); LYMPH % 25.3 % (8-40); MCH 29.4 pg (25.7-33.7); MCHC 34.5 g/dl (32.0-35.9); MEAN CELL VOLUME 85.3 fl (80-96); MEAN PLT VOLUME 8.1 fl (7.5-11.1); MONO % 7.6 % (3.8-10.2); NEUT % 48.3 % (42.8-82.8); PLATELET COUNT 143 K/MM3 (134-434); RBC 4.46 M/mm3 (4.00-5.60); RDW 13.2 % (11.9-15.9); WHITE BLOOD COUNT 8.3 K/mm3 (4.0-10.0)
[2018-07-06 07:52] LABS: ALK PHOS 21 U/L (45-117); ANION GAP 9 MMOL/L (8-16); BILIRUBIN,TOTAL 0.7 mg/dL (0.2-1); BLOOD UREA NITROGEN 11 mg/dL (7-18); CALCIUM 7.9 mg/dL (8.5-10.1); CHLORIDE 107 mmol/L (98-107); CO2 26 mmol/L (21-32); CREATININE 0.6 mg/dL (0.55-1.3); GLUCOSE,RANDOM 82 mg/dL (74-106); MAGNESIUM 2.2 mg/dL (1.8-2.4); PHOSPHOROUS 3.2 mg/dL (2.5-4.9); POTASSIUM 3.8 mmol/L (3.5-5.1); SGOT/AST 8 U/L (15-37); SGPT/ALT 13 U/L (13-61); SODIUM 141 mmol/L (136-145); TOT PROT 5.1 g/dl (6.4-8.2)
--- NOTE | 2018-07-06 08:40 | PN ---
Progress Note (short form) - Note Progress Note: Dr. Pope to document today. EGD planned.
[2018-07-06] MEDS: PANTOPRAZOLE SODIUM 40 MG VIAL IVPUSH SCH (10:15)
--- NOTE | 2018-07-06 10:48 | PN ---
Progress Note, Physician Chief Complaint: Mr Bansal says he is feeling better. Abdominal pain improved. No cp, sob, n/v. - Current Medication List Current Medications: Active Medications Acetaminophen (Ofirmev Injection -) 1,000 mg IVPB Q6H PRN PRN Reason: Pain Level 4 - 10 Last Admin: 07/05/18 13:31 Dose: 1,000 mg Potassium Chloride/Dextrose/Sod Cl (D5-1/2ns+20 Meq Kcl -) 20 meq in 1,000 mls @ 100 mls/hr IV ASDIR [facility] Last Admin: 07/05/18 18:31 Dose: 100 mls/hr Insulin Aspart (Novolog Vial Sliding Scale -) 1 vial SQ ACHS [facility]; Protocol Last Admin: 07/06/18 06:29 Dose: Not Given Ondansetron HCl (Zofran Injection) 4 mg IVPUSH Q6H PRN PRN Reason: NAUSEA Last Admin: 07/05/18 21:22 Dose: 4 mg Pantoprazole Sodium (Protonix Iv) 40 mg IVPUSH DAILY [facility] Last Admin: 07/06/18 10:15 Dose: 40 mg - Objective Vital Signs: Vital Signs Temperature 36.6 C 07/06/18 10:22 Pulse Rate 86 07/06/18 10:22 Respiratory Rate 18 07/06/18 10:22 Blood Pressure 130/70 07/06/18 10:22 O2 Sat by Pulse Oximetry (%) 97 07/04/18 21:00 Constitutional: Yes: No Distress, Calm, Obese Cardiovascular: Yes: Regular Rate and Rhythm. No: Gallop, Murmur, Rub Respiratory: Yes: Regular, CTA Bilaterally. No: Rales, Rhonchi, Wheezes Gastrointestinal: Yes: Normal Bowel Sounds, Soft. No: Distention, Tenderness Extremities: Yes: WNL Edema: No Labs: CBC, BMP 07/06/18 06:15 07/06/18 06:15 INR, PTT INR 1.14 (0.83-1.09) H 07/04/18 08:30 Problem List - Problems (1) Calculus of gallbladder without cholecystitis without obstruction Code(s): K80.20 - CALCULUS OF GALLBLADDER W/O CHOLECYSTITIS W/O OBSTRUCTION (2) Epigastric pain Code(s): R10.13 - EPIGASTRIC PAIN (3) Obesity (BMI 30.0-34.9) Code(s): E66.9 - OBESITY, UNSPECIFIED (4) DMII (diabetes mellitus, type 2) Code(s): E11.9 - TYPE 2 DIABETES MELLITUS WITHOUT COMPLICATIONS (5) Grvvi-Hsrsuaexf-Fegoa (WPW) syndrome Code(s): I45.6 - PRE-EXCITATION SYNDROME Assessment/Plan (1) Calculus of gallbladder without cholecystitis without obstruction Assessment/Plan: -case d/w Dr Fox -no emergent need for surgical intervention at this time Code(s): K80.20 - CALCULUS OF GALLBLADDER W/O CHOLECYSTITIS W/O OBSTRUCTION (2) Epigastric pain Assessment/Plan: -EGD today Code(s): R10.13 - EPIGASTRIC PAIN (3) Obesity (BMI 30.0-34.9) Assessment/Plan: -outpatient weight loss plan Code(s): E66.9 - OBESITY, UNSPECIFIED (4) DMII (diabetes mellitus, type 2) Assessment/Plan: -SSI Code(s): E11.9 - TYPE 2 DIABETES MELLITUS WITHOUT COMPLICATIONS (5) Qtsfa-Phkoanvcj-Zbcaj (WPW) syndrome Assessment/Plan: -noted Code(s): I45.6 - PRE-EXCITATION SYNDROME Dispo -possible discharge today pending EGD results
[2018-07-06] MEDS ORDERED: PROPOFOL 20 ML ONE ×2 (13:19)
[2018-07-06] MEDS ORDERED: ONDANSETRON 4 MG/2 ML VIAL IVPUSH PRN (14:58)
[2018-07-06] MEDS ORDERED: D5-1/2NS+20 MEQ KCL - 20 MEQ/1,000 ML INFUS.BAG IV SCH (14:58)
[2018-07-06] MEDS ORDERED: ACETAMINOPHEN 1000 MG/100 ML VIAL (NON FORMULARY) IVPB PRN (14:58)
[2018-07-06] MEDS: METOCLOPRAMIDE HCL 10 MG TABLET (FP) PO SCH (17:43)
--- NOTE | 2018-07-06 18:59 | PN ---
Progress Note, Physician History of Present Illness: 38yo obese M with WPW, DM2, h/o gastritis, esophageal candidiasis, prepyloric erosions on EGD 2011 (Dr. Grande), with epigastric pain associated with n/v, diarrhea. US was done showing gallstones but no sign of cholecystitis. CT was then done showing only that as well, no clear source for leukocytosis. HIDA was done showing gallbladder filling at 20 minutes, fully within the hour, excluding cystic duct obstruction. He is seen in his bed, having been up ambulating today. He had small BM earlier. His pain is better overall, had EGD today with Dr. Duvall, with no abnormal findings except possibly mild gastritis. He tolerated diabetic dinner and is now off fluids. He was started on reglan by GI and continues on PPI. - Current Medication List Current Medications: Active Medications Acetaminophen (Ofirmev Injection -) 1,000 mg IVPB Q6H PRN PRN Reason: Pain Level 4 - 10 Potassium Chloride/Dextrose/Sod Cl (D5-1/2ns+20 Meq Kcl -) 20 meq in 1,000 mls @ 100 mls/hr IV ASDIR [facility] Insulin Aspart (Novolog Vial Sliding Scale -) 1 vial SQ ACHS [facility]; Protocol Last Admin: 07/06/18 17:44 Dose: Not Given Metoclopramide HCl (Reglan -) 5 mg PO TIDAC [facility] Last Admin: 07/06/18 17:43 Dose: 5 mg Ondansetron HCl (Zofran Injection) 4 mg IVPUSH Q6H PRN PRN Reason: NAUSEA Pantoprazole Sodium (Protonix Iv) 40 mg IVPUSH DAILY [facility] - Objective Vital Signs: Vital Signs Temperature 98.1 F 07/06/18 15:45 Pulse Rate 87 07/06/18 15:45 Respiratory Rate 20 07/06/18 15:45 Blood Pressure 148/88 07/06/18 15:45 O2 Sat by Pulse Oximetry (%) 98 07/06/18 15:45 Constitutional: Yes: Well Nourished, No Distress, Calm Eyes: Yes: Conjunctiva Clear, EOM Intact. No: Sclera Icterus HENT: Yes: Atraumatic, Normocephalic Gastrointestinal: Yes: Soft, Abdomen, Obese, Tenderness, Epigastrium (very mild , also bilateral upper quadrants, no R/G). No: Tenderness, Rebound Extremities: No: Cool, Cyanosis Integumentary: Yes: Tattoos. No: Jaundice, Rash Neurological: Yes: Alert, Oriented. No: Unsteady Gait Labs: CBC, BMP 07/06/18 06:15 07/06/18 06:15 INR, PTT INR 1.14 (0.83-1.09) H 07/04/18 08:30 Problem List - Problems (1) Calculus of gallbladder without cholecystitis without obstruction Assessment/Plan: gallstones but otherwise US, CT, HIDA negative - doubt gallbladder is primary source of pain stop IVF tolerating diet could probably go home in am if still doing well on diet avoid NSAIDs, continue PPI should f/u with PMD and GI outpatient no need for surgical followup at this time Code(s): K80.20 - CALCULUS OF GALLBLADDER W/O CHOLECYSTITIS W/O OBSTRUCTION (2) Epigastric pain Assessment/Plan: resolved Code(s): R10.13 - EPIGASTRIC PAIN (3) Leukocytosis Assessment/Plan: normalized Code(s): D72.829 - ELEVATED WHITE BLOOD CELL COUNT, UNSPECIFIED Qualifiers: Leukocytosis type: bandemia Qualified Code(s): D72.825 - Bandemia (4) Nausea & vomiting Assessment/Plan: resolved Code(s): R11.2 - NAUSEA WITH VOMITING, UNSPECIFIED Qualifiers: Vomiting type: unspecified Vomiting Intractability: non-intractable Qualified Code(s): R11.2 - Nausea with vomiting, unspecified (5) Fpxri-Pybhmfmfv-Ehfms (WPW) syndrome Code(s): I45.6 - PRE-EXCITATION SYNDROME (6) Obesity (BMI 30.0-34.9) Code(s): E66.9 - OBESITY, UNSPECIFIED
[2018-07-06] MEDS ORDERED: ACETAMINOPHEN 325 MG TABLET (FP) PO PRN (19:00)
[2018-07-07 01:34] VITALS: TEMP 98.2
[2018-07-07] MEDS: METOCLOPRAMIDE HCL 10 MG TABLET (FP) PO SCH ×2 (06:07→12:31)
[2018-07-07] MEDS: INSULIN SLIDING SCALE (NOVOLOG) 1 VIAL SQ SCH ×2 (06:09→11:00)
[2018-07-07 06:11] VITALS: BP 152/78; PULSE 89
--- NOTE | 2018-07-07 09:46 | PN ---
Progress Note (short form) - Note Progress Note: Dr. Pope to document today. Some loose BM's Patient is not on PPI at home. As his BGM's are normal without Diabetes Meds, I told him to delay restarting his Trulicity, Insulin and Metformin until his BGM's reflect an increase in glucose. if he can tolerate his diet without significance symptoms then he can resume his regular doses. He follows with Dr. Shah.
[2018-07-07] MEDS ORDERED: PANTOPRAZOLE SODIUM 40 MG VIAL IVPUSH SCH (10:00)
--- NOTE | 2018-07-07 12:17 | DS ---
Physical Examination Vital Signs: Vital Signs Temperature 36.8 C 07/07/18 06:09 Pulse Rate 89 07/07/18 06:09 Respiratory Rate 20 07/07/18 06:09 Blood Pressure 152/78 07/07/18 06:09 O2 Sat by Pulse Oximetry (%) 100 07/06/18 21:00 Constitutional: Yes: No Distress, Calm, Obese Cardiovascular: Yes: Regular Rate and Rhythm. No: Gallop, Murmur, Rub Respiratory: Yes: Regular, CTA Bilaterally. No: Rales, Rhonchi, Wheezes Gastrointestinal: Yes: Normal Bowel Sounds, Soft. No: Distention, Tenderness Extremities: Yes: WNL Edema: No Labs: CBC, BMP 07/06/18 06:15 07/06/18 06:15 Discharge Summary Reason For Visit: CHOLECYSTITIS Current Active Problems Calculus of gallbladder without cholecystitis without obstruction (Acute) Cholecystitis (Acute) Epigastric pain (Acute) Leukocytosis (Acute) Nausea & vomiting (Acute) Obesity (BMI 30.0-34.9) (Acute) Hospital Course: (1) Calculus of gallbladder without cholecystitis without obstruction Code(s): K80.20 - CALCULUS OF GALLBLADDER W/O CHOLECYSTITIS W/O OBSTRUCTION (2) Epigastric pain Code(s): R10.13 - EPIGASTRIC PAIN (3) Obesity (BMI 30.0-34.9) Code(s): E66.9 - OBESITY, UNSPECIFIED (4) DMII (diabetes mellitus, type 2) Code(s): E11.9 - TYPE 2 DIABETES MELLITUS WITHOUT COMPLICATIONS (5) Aiktl-Vcfaktnkr-Iekuh (WPW) syndrome Code(s): I45.6 - PRE-EXCITATION SYNDROME Mr Bansal is a pleasant 38 year old male who came in with abdominal pain. He has history of cholelithiasis without cholecystitis, this was again seen on imaging. Surgery consulted and obtained HIDA scan. This was negative. GI was consulted and patient underwent EGD. Was found to have gastric erosions causing abdominal pain. He was discharged on protonix and reglan. He should follow up with his PCP, GI, and endocrinology. 32 minutes spent in preparation of this discharge Condition: Good - Instructions Diet, Activity, Other Instructions: resume previous diet and activity Referrals: Steven Brown MD [Primary Care Provider] - Aravind Grande DO [Staff Physician] - Disposition: HOME - Home Medications Comprehensive Discharge Medication List: Ambulatory Orders Metoclopramide HCl [Reglan] 5 mg PO TID #90 tablet 07/07/18 Pantoprazole Sodium [Protonix -] 40 mg PO DAILY #30 tablet.ec 07/07/18
--- NOTE | 2018-07-10 17:57 | PATH ---
Surgical Pathology Report Patient Name: TIMI MORELAND Med. Rec. #: [id number] /Age/Gender: 1980 (Age: 38) / M Account: [id number] [facility] Taken: 07/06/2018 Received: 07/07/2018 Reported: 07/10/2018 Physicians: Dung Duvall M.D. Specimen(s) Received A: BX DUODENUM B: BX BODY Clinical History None given Final Diagnosis A. DUODENUM, BIOPSY: DUODENAL MUCOSA WITH MILD TO MODERATE ACUTE AND CHRONIC DUODENITIS. B. STOMACH, BODY, BIOPSY: GASTRIC BODY MUCOSA WITH MILD CHRONIC GASTRITIS. IMMUNOHISTOCHEMICAL STAIN FOR H. PYLORI IS NEGATIVE. Electronically Signed Annabella Rodas M.D. Gross Description A. Received in formalin, labeled "duodenum" are 2 salas, irregular portions of soft tissue averaging 0.3 cm. in greatest dimension. The specimens are submitted in toto in one cassette. B. Received in formalin, labeled "body" are 2 salas, irregular portions of soft tissue measuring 0.2 and 0.7 cm. in greatest dimension. The specimens are submitted in toto in one cassette. DL07/07/2018 saudi07/07/2018
== END 2018-07-07 14:00 | disposition home or self-care (01) | DRG 446 ==
LOC: JER 07:10 → JERBED 15:21 → J7W 20:52
PROVIDERS: ADMIT Internal Medicine; ATTEND Internal Medicine
PROC: 0DD68ZX Extraction of Stomach, Via Natural or Artificial Opening Endoscopic, Diagnostic (ICD-10-PCS; principal; 2018-07-06 14:00)
DX: K80.20 Calculus of gallbladder without cholecystitis without obstruction (principal); I45.6 Pre-excitation syndrome; E11.9 Type 2 diabetes mellitus without complications; I10 Essential (primary) hypertension; E66.9 Obesity, unspecified; Z68.31 Body mass index [BMI] 31.0-31.9, adult
CPT/HCPCS: 36415; 74177-TC; 76705-TC; 78226-TC; 80053; 81003; 81015; 82550; 82962; 83036; 83690; 83735; 84100; 84484; 85025; 85610; 85730; 86850; 86900; 86901; 87086; 88305-TC; 93005; 93010; 94760; 99284-25; A9537; J0131; J7030; Q9967

== ENCOUNTER 2018-07-12 14:18 | Inpatient (IN) | payer BC ==
--- NOTE | 2018-07-12 14:26 | PDOC ---
Rapid Medical Evaluation Chief Complaint: Diarrhea Time Seen by Provider: 07/12/18 14:21 Medical Evaluation: Allergies Allergy/AdvReac Type Severity Reaction Status Date / Time No Known Allergies Allergy Verified 09/16/16 20:16 07/12/18 14:24 I have performed a brief in-person evaluation of this patient. The patient presents with a CC of: abd pain with diarrhea. HPI: Pt is 38 YO male who was admitted to the hospital and had an US and endoscopy and states he continues with diffuse abd pain, weight loss and diarrhea. Denies recent abx use. Pt has Type II DM and has not been taking meds as advised by his PCP. Pertinent PE: Skin: Clear Lungs: Clear Heart: RRR Abd: Soft, diffuse tenderness. No guarding. Moves all extremities Neuro: Alert Psych: Age appropriate. I have ordered the following: basic labs The patient will proceed to main ED for further evaluation. Discharge Disposition - Diagnosis Diarrhea Qualifiers: Diarrhea type: unspecified type Qualified Code(s): R19.7 - Diarrhea, unspecified - Referrals Referrals: Steven Brown MD [Primary Care Provider] - - Patient Instructions - Post Discharge Activity
--- NOTE | 2018-07-12 14:47 | PDOC ---
History of Present Illness - General Chief Complaint: Diarrhea Stated Complaint: SENT BY PCP ABD PAIN Time Seen by Provider: 07/12/18 14:21 - History of Present Illness Initial Comments: The patient is a 38M w/ a history of T2DM and WPW who presents for evaluation of approximately 1.5 weeks of diarrhea and intermittent vomiting. He denies blood in his vomit or stool. He was recently admitted for similar symptoms. He was evaluated, found to have gastric ulcerations on EGD and prescribed protonix which has provided little relief. Endorses cramping periumbilical, non- radiating abdominal pain that is not alleviated by anything that he can identify. He denies fevers/chill, MATAMOROS, vision changes, chest pain, SOB, or changes in sensation 07/12/18 14:42 07/12/18 15:04 Past History - Past Medical History Allergies/Adverse Reactions: Allergies Allergy/AdvReac Type Severity Reaction Status Date / Time No Known Allergies Allergy Verified 07/12/18 14:24 Home Medications: Ambulatory Orders Metoclopramide HCl [Reglan] 5 mg PO TID #90 tablet 07/07/18 Pantoprazole Sodium [Protonix -] 40 mg PO DAILY #30 tablet.ec 07/07/18 Insulin Glargine,Hum.rec.anlog [Toujeo Solostar] 10 unit SQ DAILY 07/12/18 Metformin HCl [Metformin HCl ER] 1,000 mg PO BID 07/12/18 Anemia: No Asthma: No Cancer: No Cardiac Disorders: Yes ([place] WHITE.) CVA: No COPD: No CHF: No Dementia: No Diabetes: Yes GI Disorders: No Disorders: No HTN: Yes Hypercholesterolemia: No Liver Disease: No Seizures: No Thyroid Disease: No - Surgical History Orthopedic Surgery: Yes (Rt Knee arthroscopic) - Immunization History Td Vaccination: Yes Immunization Up to Date: No - Suicide/Smoking/Psychosocial Hx Smoking Status: No Smoking History: Never smoked Have you smoked in the past 12 months: No Number of Cigarettes Smoked Daily: 0 Hx Alcohol Use: No Drug/Substance Use Hx: No Substance Use Type: None Hx Substance Use Treatment: No Review of Systems - Review of Systems Able to Perform ROS?: Yes Comments:: GENERAL/CONSTITUTIONAL: No fever or chills. No weakness HEAD, EYES, EARS, NOSE AND THROAT: No change in vision. No ear pain or discharge. No sore throat CARDIOVASCULAR: No chest pain or shortness of breath RESPIRATORY: Denies cough, hemoptysis GASTROINTESTINAL: no HPI GENITOURINARY: No dysuria, frequency, or change in urination MUSCULOSKELETAL: No joint or muscle swelling or pain. No neck or back pain SKIN: No rash NEUROLOGIC: No headache, vertigo, loss of consciousness, or change in strength/ sensation ENDOCRINE: No increased thirst. No abnormal weight change HEMATOLOGIC/LYMPHATIC: No anemia, easy bleeding, or history of blood clots ALLERGIC/IMMUNOLOGIC: No hives or skin allergy 07/12/18 14:42 Is the patient limited Faroese proficient: No *Physical Exam - Vital Signs Last Vital Signs Temp Pulse Resp BP Pulse Ox 97.6 F 111 H 18 114/82 99 07/12/18 14:24 07/12/18 14:24 07/12/18 14:24 07/12/18 14:24 07/12/18 14:24 - Physical Exam Comments: GENERAL: Awake, alert, and fully oriented, in no acute distress HEAD: No signs of trauma, normocephalic, atraumatic EYES: PERRLA, EOMI, sclera anicteric, conjunctiva clear ENT: Hearing grossly normal, nares patent, oropharynx clear without exudates. Moist mucosa LUNGS: No distress, speaks full sentences, clear to auscultation bilaterally HEART: Regular rate and rhythm, normal S1 and S2, no murmurs appreciated, peripheral pulses normal and equal bilaterally ABDOMEN: Soft, mild periumbilical TTP w/o rebound or guarding, normoactive bowel sounds EXTREMITIES : Normal inspection, Normal range of motion, no edema. No clubbing or cyanosis NEUROLOGICAL: Cranial nerves II through XII grossly intact. Normal speech, normal gait, no focal sensorimotor deficits SKIN: Warm, Dry, normal turgor, no rashes or lesions noted 07/12/18 14:42 Moderate Sedation - Procedure Monitoring Vital Signs: Procedure Monitoring Vital Signs Temperature 97.6 F 07/12/18 14:24 Pulse Rate 111 H 07/12/18 14:24 Respiratory Rate 18 07/12/18 14:24 Blood Pressure 114/82 07/12/18 14:24 O2 Sat by Pulse Oximetry (%) 99 07/12/18 14:24 ED Treatment Course - LABORATORY CBC & Chemistry Diagram: 07/12/18 14:14 07/12/18 14:25 Medical Decision Making - Medical Decision Making The patient is a 38M w/ a history of T2DM and WPW who presents for evaluation for persistent N/V and diarrhea since discharge. Was sent in by PCP for evaluation. CMP, CBC, stool ova/parasite ECG RUQ US NS 1L, protonix, reglan 07/12/18 15:23 Mild leukocytosis No anemia Lytes wnl LFTs wnl No MICHAEL 07/12/18 16:12 Pt still pending US 07/12/18 18:11 US significant for cholecystitis Plan for admission and surgery consultation -NPO, IVF, Zosyn IV Dispo: admit 07/12/18 21:10 *DC/Admit/Observation/Transfer Diagnosis at time of Disposition: Cholecystitis Diarrhea Qualifiers: Diarrhea type: unspecified type Qualified Code(s): R19.7 - Diarrhea, unspecified - Discharge Dispostion Condition at time of disposition: Good Decision to Admit order: Yes - Referrals - Patient Instructions - Post Discharge Activity
[2018-07-12 15:17] LABS: BASO % 0.3 % (0-2.0); EOS % 15.2 % (0-4.5); HEMATOCRIT 45.2 % (35.4-49); HEMOGLOBIN 15.4 GM/dL (11.7-16.9); MCH 28.9 pg (25.7-33.7); MCHC 34.2 g/dl (32.0-35.9); MEAN CELL VOLUME 84.6 fl (80-96); MEAN PLT VOLUME 8.1 fl (7.5-11.1); MONO % 7.7 % (3.8-10.2); NEUT % 48.8 % (42.8-82.8); PLATELET COUNT 196 K/MM3 (134-434); RBC 5.34 M/mm3 (4.00-5.60); RDW 13.6 % (11.9-15.9); WHITE BLOOD COUNT 12.2 K/mm3 (4.0-10.0)
[2018-07-12] MEDS ORDERED: SODIUM CHLORIDE 0.9% 500 ML INFUS.BAG IV ONE (15:20)
[2018-07-12] MEDS ORDERED: PANTOPRAZOLE SODIUM 40 MG VIAL IVPUSH ONE (15:20)
--- NOTE | 2018-07-12 15:20 | PDOC ---
Attending Attestation - Resident Resident Name: Fabien Glaser - ED Attending Attestation I have performed the following: I have examined & evaluated the patient, The case was reviewed & discussed with the resident, I agree w/resident's findings & plan - [facility] HPI: 07/14/18 07:24 Mr. Bansal is a 38 year old male with past medical history significant for WPW , DM 2, hx of Gastritis was sent to the emergency department by Dr. Brown for evaluation for diarrhea and weight loss. The reports since 07/07 hes been having episodes of nonbloody, non-melanotic salas colored stool, thats associated with 10 pound weight loss. The patient was recently admitted to the hospital for cholelithiasis. During the stay the patient had a negative HIDA scan with EGD significant for gastric erosion. The patient was discharged on protonix and reglan. The patient reports hes been having episodes of diarrhea since the discharges, thats been progressively worsening. Denies sick contact, travel history or recent abx use. Allergies: PCP: Dr. Brown,Steven Ryan MD - Physicial Exam PE: 07/14/18 07:24 NAD, well appearing, MMM, nl conjunctiva, anicteric; neck supple. lungs clear, RRR, abdomen soft +diffusely tender. worse in periumbilicus region. SANTOS x4, no focal neuro deficits. No peripheral edema. normal color for ethnicity, WWP. - Medical Decision Making 07/12/18 15:19 See HPI for details Vital signs reviewed, +tachycardia noted Prior notes reviewed, including admissions, discharges and consultations. prior EGD last week with mucosal erythema in gastric antrum. +gallstones noted on US and CT a/p 07/04, with neg HIDA scan laboratory results and imaging reviewed, basic labs and lytes wnl, notable for increased T.bili, mild leukocytosis of 12K noted. otherwise, normal cr and chem stool studies pending, no C diff risk factors but will send given community acquisition possibly and multiple episodes of diarrhea. ED course: IVF, hydration, protonix and reglan IV. repeat bedside GB/biliary sono with +gallstones and focal areas of GB wall edema ~5mm, otherwise no pericholecystitic fluid or sono figueredo send for official, prior GB us noted with neg HIDA. Dispo: Admit for further management of diarrhea, AP 07/12/18 15:21 07/14/18 07:24 07/14/18 07:25
[2018-07-12] MEDS ORDERED: METOCLOPRAMIDE HCL INJECTION 10 MG/2 ML VIAL IVPUSH ONE (15:21)
[2018-07-12 15:33] LABS: ALBUMIN 3.6 g/dl (3.4-5.0); ALK PHOS 24 U/L (45-117); ANION GAP 7 MMOL/L (8-16); BILIRUBIN,TOTAL 1.2 mg/dL (0.2-1); BLOOD UREA NITROGEN 16 mg/dL (7-18); CALCIUM 8.7 mg/dL (8.5-10.1); CHLORIDE 103 mmol/L (98-107); CO2 30 mmol/L (21-32); CREATININE 1.1 mg/dL (0.55-1.3); GLUCOSE,RANDOM 125 mg/dL (74-106); LIPASE 92 U/L (73-393); POTASSIUM 3.6 mmol/L (3.5-5.1); SGOT/AST 16 U/L (15-37); SGPT/ALT 28 U/L (13-61); SODIUM 139 mmol/L (136-145); TOT PROT 6.4 g/dl (6.4-8.2)
[2018-07-12] MEDS ORDERED: METOCLOPRAMIDE HCL INJECTION 10 MG/2 ML VIAL ONE (16:12)
[2018-07-12] MEDS ORDERED: PANTOPRAZOLE SODIUM 40 MG/100 ML BAG IVPB ONE (16:12)
[2018-07-12 16:34] LABS: URINE APPEARANCE SLCLOUDY; URINE COLOR AMBER; URINE GLUCOSE (UA) NEGATIVE (NEGATIVE); URINE KETONE 1+ (NEGATIVE); URINE LEUK ESTERASE NEGATIVE (NEGATIVE); URINE NITRITE NEGATIVE (NEGATIVE); URINE PROTEIN 2+ (NEGATIVE)
[2018-07-12 16:52] LABS: EPI CELLS RARE /HPF (FEW); URINE HYALINE CAST 47 /lpf; URINE MUCUS MANY
[2018-07-12] MEDS ORDERED: PIPERACILLIN/TAZOB 3.375 GM 3.375 GM in DEXTROSE 5%-WATER - 50 ML IVPB ONE (19:04)
[2018-07-12] MEDS ORDERED: SODIUM CHLORIDE 1,000 ML IV SCH ×2 (19:30→20:30)
[2018-07-12] MEDS ORDERED: PIPERACILLIN/TAZOB 3.375 GM 3.375 GM/50 ML BAG IVPB ONE (20:09)
--- NOTE | 2018-07-12 20:15 | HP ---
Admitting History and Physical - Primary Care Physician PCP: Ankit Morales - Admission Chief Complaint: abdominall pain History of Present Illness: 38M w/ a history of T2DM and WPW who presents for evaluation of approximately 1.5 weeks of diarrhea and intermittent vomiting. He denies blood in his vomit or stool. He was recently admitted for similar symptoms. He was evaluated, found to have gastric ulcerations on EGD and prescribed protonix which has provided little relief. Endorses cramping periumbilical, non-radiating abdominal pain that is not alleviated by anything that he can identify. He denies fevers/chill, MATAMOROS, vision changes, chest pain, SOB, or changes in sensation - Past Medical History Cardiovascular: Yes: Other (ihag-nzzdggfdl-eozoo Syndrome) Gastrointestinal: Yes: Gastritis Hepatobiliary: Yes: Cholelithiasis Musculoskeletal: Yes: Chronic low back pain (and knee pain) Endocrine: Yes: Diabetes Mellitus - Past Surgical History Past Surgical History: Yes: Tonsillectomy - Smoking History Smoking history: Never smoked Have you smoked in the past 12 months: No Aproximately how many cigarettes per day: 0 - Alcohol/Substance Use Hx Alcohol Use: No History of Substance Use: reports: None - Social History ADL: Independent 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 Home Medications - Allergies Allergies/Adverse Reactions: Allergies Allergy/AdvReac Type Severity Reaction Status Date / Time No Known Allergies Allergy Verified 07/12/18 14:24 - Home Medications Home Medications: Ambulatory Orders Metoclopramide HCl [Reglan] 5 mg PO TID #90 tablet 07/07/18 Pantoprazole Sodium [Protonix -] 40 mg PO DAILY #30 tablet.ec 07/07/18 Insulin Glargine,Hum.rec.anlog [Rex Solsy] 10 unit SQ DAILY 07/12/18 Metformin HCl [Metformin HCl ER] 1,000 mg PO BID 07/12/18 Family Disease History - Family Disease History Family Disease History: Diabetes: Father (Cholelthiasis), Other: Father, Mother (htn; gallbladder out), Brother (Cholelthiasis) Physical Examination Vital Signs: Vital Signs Temperature 98.6 F 07/12/18 17:23 Pulse Rate 91 H 07/12/18 17:23 Respiratory Rate 18 07/12/18 17:27 Blood Pressure 114/76 12/05/18 17:23 O2 Sat by Pulse Oximetry (%) 99 07/12/18 17:23 Constitutional: Yes: No Distress HENT: Yes: Atraumatic Neck: Yes: Supple Cardiovascular: Yes: Regular Rate and Rhythm Respiratory: Yes: CTA Bilaterally Gastrointestinal: Yes: Tenderness, Epigastrium Extremities: Yes: WNL Edema: No Peripheral Pulses WNL: Yes Neurological: Yes: Alert, Oriented Labs: CBC, BMP 07/12/18 14:14 07/12/18 14:25 Problem List - Problems (1) Diarrhea Code(s): R19.7 - DIARRHEA, UNSPECIFIED Qualifiers: Diarrhea type: unspecified type Qualified Code(s): R19.7 - Diarrhea, unspecified (2) Abdominal pain Assessment/Plan: prn pain meds Code(s): R10.9 - UNSPECIFIED ABDOMINAL PAIN Qualifiers: Abdominal location: generalized Qualified Code(s): R10.84 - Generalized abdominal pain (3) Acute cholecystitis Assessment/Plan: will get surgery eval npo, ivf prn painmeds Code(s): K81.0 - ACUTE CHOLECYSTITIS Assessment/Plan Laboratory Tests 07/12/18 07/12/18 07/12/18 14:14 14:25 16:19 WBC 12.2 H RBC 5.34 Hgb 15.4 Hct 45.2 D MCV 84.6 MCH 28.9 MCHC 34.2 RDW 13.6 Plt Count 196 D MPV 8.1 Absolute Neuts (auto) 6.0 Neutrophils % 48.8 Lymphocytes % 28.0 Monocytes % 7.7 Eosinophils % 15.2 H Basophils % 0.3 Nucleated RBC % 0 Sodium 139 Potassium 3.6 Chloride 103 Carbon Dioxide 30 Anion Gap 7 L BUN 16 Creatinine 1.1 Creat Clearance w eGFR > 60 Random Glucose 125 H Calcium 8.7 Total Bilirubin 1.2 H AST 16 ALT 28 Alkaline Phosphatase 24 L Total Protein 6.4 Albumin 3.6 Lipase 92 Urine Color Zenaida Urine Appearance Slcloudy Urine pH 5.0 Ur Specific Peck 1.029 Urine Protein 2+ H Urine Glucose (UA) Negative Urine Ketones 1+ H Urine Blood Negative Urine Nitrite Negative Urine Bilirubin 2.0 Urine Urobilinogen 2.0 Ur Leukocyte Esterase Negative Urine WBC (Auto) 4 Urine RBC (Auto) 1 Ur Epithelial Cells Rare Hyaline Casts 47 Urine Mucus Many Active Medications Generic Name Dose Route Start Last Admin Trade Name Freq PRN Reason Stop Dose Admin Sodium Chloride 1,000 mls @ 75 mls/hr 07/12/18 19:30 Normal Saline - IV ASDIR SCOTTY Active Medications Generic Name Dose Route Start Last Admin Trade Name Freq PRN Reason Stop Dose Admin Potassium Chloride/Dextrose/Sod Cl 10 meq in 1,000 mls @ 100 mls/hr 07/13/18 10:45 07/13/18 17:10 D5-1/2ns+10 Meq Kcl - IV 100 mls/hr ASDIR SCOTTY Administration Morphine Sulfate 2 mg 07/12/18 20:17 Morphine Sulfate IVPUSH Q4H PRN PAIN LEVEL 4 - 6 Ondansetron HCl 4 mg 07/13/18 11:44 Zofran Injection IVPUSH Q6H PRN NAUSEA AND/OR VOMITING Pantoprazole Sodium 40 mg 07/13/18 10:00 07/13/18 10:58 Protonix Iv IVPUSH 40 mg DAILY SCOTTY Administration Vancomycin HCl 125 mg 07/13/18 18:00 Vancomycin Oral Solution PO Q6HPO SCOTTY
[2018-07-12] MEDS ORDERED: MORPHINE SULFATE 2 MG/ML VIAL IVPUSH PRN (20:17)
[2018-07-13 02:22] VITALS: BMI 31.8
[2018-07-13 08:12] LABS: BASO % 0.1 % (0-2.0); EOS % 22.2 % (0-4.5); HEMATOCRIT 40.2 % (35.4-49); HEMOGLOBIN 13.8 GM/dL (11.7-16.9); MCH 29.2 pg (25.7-33.7); MCHC 34.3 g/dl (32.0-35.9); MEAN CELL VOLUME 85.2 fl (80-96); MEAN PLT VOLUME 8.6 fl (7.5-11.1); MONO % 6.7 % (3.8-10.2); PLATELET COUNT 158 K/MM3 (134-434); RBC 4.72 M/mm3 (4.00-5.60); RDW 13.3 % (11.9-15.9); WHITE BLOOD COUNT 10.6 K/mm3 (4.0-10.0)
[2018-07-13 08:26] LABS: ALBUMIN 3.1 g/dl (3.4-5.0); ALK PHOS 21 U/L (45-117); ANION GAP 7 MMOL/L (8-16); BILIRUBIN,TOTAL 0.8 mg/dL (0.2-1); BLOOD UREA NITROGEN 14 mg/dL (7-18); CALCIUM 8.1 mg/dL (8.5-10.1); CHLORIDE 107 mmol/L (98-107); CO2 28 mmol/L (21-32); CREATININE 0.8 mg/dL (0.55-1.3); GLUCOSE,RANDOM 85 mg/dL (74-106); POTASSIUM 3.6 mmol/L (3.5-5.1); SGOT/AST 19 U/L (15-37); SGPT/ALT 34 U/L (13-61); SODIUM 142 mmol/L (136-145); TOT PROT 5.2 g/dl (6.4-8.2)
[2018-07-13 08:34] LABS: INR 1.17 (0.83-1.09); PROTHROMBIN TIME (PATIENT) 13.8 SEC (9.7-13.0)
--- NOTE | 2018-07-13 08:52 | PN ---
Progress Note (short form) - Note Progress Note: Patient with repeat admission for diffuse watery diarrhea and abdominal pain with nausea and vomiting for 2 weeks. Previous admission did not reveal cause; now GB sonogram suggests cholecystitis. Diarrhea still out of line with GB pathology and Eosinophil count very elevated. Stool Diff and Oand P ordered. DM controlled Strong FH of GB pathology. Will add GI MD.
--- NOTE | 2018-07-13 09:31 | PN ---
Progress Note, Physician Chief Complaint: Pt sitting in bed in no acute distress, reports abd pain, mostly epigastric region along w/ generalized abd pain. Pt was discharged last tuesday on Reglan, developed diarrhea 2 days after. Also uses advil/aspirin for back pain, last used 2-3 weeks ago. Pt denies any chest pain, sob. - Current Medication List Current Medications: Active Medications Sodium Chloride (Normal Saline -) 1,000 mls @ 100 mls/hr IV ASDIR [facility] Last Admin: 07/12/18 20:40 Dose: 100 mls/hr Influenza Virus Vaccine Quadrival (Flulaval Quad [id number]) 60 mcg IM .ONCE ONE Stop: 07/13/18 10:01 Morphine Sulfate (Morphine Sulfate) 2 mg IVPUSH Q4H PRN PRN Reason: PAIN LEVEL 4 - 6 Pantoprazole Sodium (Protonix Iv) 40 mg IVPUSH DAILY [facility] - Objective Vital Signs: Vital Signs Temperature 98.4 F 07/13/18 05:56 Pulse Rate 95 H 07/13/18 05:56 Respiratory Rate 18 07/13/18 05:56 Blood Pressure 135/62 07/13/18 05:56 O2 Sat by Pulse Oximetry (%) 98 07/13/18 00:05 Constitutional: Yes: Well Nourished, No Distress, Calm Cardiovascular: Yes: WNL, Regular Rate and Rhythm. No: Pulse Irregular, Murmur Respiratory: Yes: WNL, Regular, CTA Bilaterally. No: Accessory Muscle Use, Cough, SOB, Tachypnea, Wheezes Gastrointestinal: Yes: Normal Bowel Sounds, Soft, Tenderness (generalized). No : Distention, Tenderness, Rebound, Vomiting Genitourinary: Yes: WNL Musculoskeletal: Yes: WNL Extremities: Yes: WNL Edema: No Neurological: Yes: WNL, Alert, Oriented Psychiatric: Yes: WNL, Alert, Oriented Labs: CBC, BMP 07/13/18 06:00 07/13/18 06:00 INR, PTT INR 1.17 (0.83-1.09) H 07/13/18 06:00 - ....Imaging Ultrasound: Report Reviewed Problem List - Problems (1) Clostridium difficile enteritis Assessment/Plan: diarrhea >6x/day cdiff antigen positive, toxin neg await stool culture result recent hospitalization po vanco started monitor Code(s): A04.72 - ENTEROCOLITIS D/T CLOSTRIDIUM DIFFICILE, NOT SPCF RECUR (2) Abdominal pain Assessment/Plan: epigastric to generalized abd pain 2/2 gb pathology and frequent diarrhea no acute abdomen Code(s): R10.9 - UNSPECIFIED ABDOMINAL PAIN Qualifiers: Abdominal location: generalized Qualified Code(s): R10.84 - Generalized abdominal pain (3) Acute cholecystitis Assessment/Plan: Abd US: mild gb edema/distention, +calculi +abd pain, n/v, wbc improved lactic acid wnl HIDA scan pending surgery consult appreciated- consider surgery once acute issues resolve gi consult pending Code(s): K81.0 - ACUTE CHOLECYSTITIS (4) Leukocytosis Assessment/Plan: improving 2/2 cdiff colitis Code(s): D72.829 - ELEVATED WHITE BLOOD CELL COUNT, UNSPECIFIED (5) Hypokalemia Assessment/Plan: mild 2/2 gi loss supplemented to ivf monitor bmp Code(s): E87.6 - HYPOKALEMIA (6) Eosinophilia Assessment/Plan: 2/2 allergies/ acute infection? strongiloides ab pending monitor Code(s): D72.1 - EOSINOPHILIA
[2018-07-13] MEDS ORDERED: FLU VACCINE QUAD 60 MCG/0.5 ML (MDV 18-19) IM ONE (10:00)
--- NOTE | 2018-07-13 10:29 | EKG ---
Test Reason : Blood Pressure : / mmHG Vent. Rate : 091 BPM Atrial Rate : 091 BPM P-R Int : 114 ms QRS Dur : 124 ms QT Int : 408 ms P-R-T Axes : 045 -20 122 degrees QTc Int : 501 ms NORMAL SINUS RHYTHM [id number] ABNORMAL ECG WHEN COMPARED WITH ECG OF 04-JUL-2018 08:33, NO SIGNIFICANT CHANGE WAS FOUND Confirmed by CRISTAL RODRIGUEZ, MAGY ([id number]) on 07/13/2018 10:29:30 AM Referred By: Confirmed By:MAGY BEE MD
[2018-07-13] MEDS: PANTOPRAZOLE SODIUM 40 MG VIAL IVPUSH SCH (10:58)
[2018-07-13] MEDS: D5-1/2NS+10 MEQ KCL - 10 MEQ/1,000 ML INFUS.BAG IV SCH ×2 (11:02→17:10)
[2018-07-13 11:16] LABS: ACANTHOCYTES 0; ANISOCYTOSIS 0; HELMET CELLS 0; HOWELL-JOLLY BODIES 0; MACROCYTOSIS 0; OVALOCYTE 0; PLATELET ESTIMATE DECREASED; ROULEAU 0; SICKELED CELLS 0; TARGET CELLS 0; TEAR DROP CELLS 0; TOXIC GRANULATION 0
[2018-07-13] MEDS ORDERED: CEFTRIAXONE 1 GM in DEXTROSE 5%-WATER - 50 ML IVPB SCH (11:30)
[2018-07-13 11:42] LABS: MAGNESIUM 2.4 mg/dL (1.8-2.4)
[2018-07-13] MEDS ORDERED: ONDANSETRON 4 MG/2 ML VIAL IVPUSH PRN (11:44)
--- NOTE | 2018-07-13 12:27 | PN ---
Progress Note (short form) - Note Progress Note: surgery pt seen and examined. full consult dictated. 38m with 2 weeks abd pain and diarrhea. w/u last week included negative ct with normal appendix and u/s gb showing stones without thickening. HIDA was negative and endoscopy showed gastritis. new w/u now has u/s with thickening and radiologist calling acute cholecystitis. Pt complains of mauro-umbilical pain and diarrhea 10Xday. noted to have elevated eeosinophils. On exam abd is soft, mild distension, mild generalized tenderness without rebound Plan- clinically doubt acute cholecystitis. will repeat hida to confirm this. suspect colitis. suggest gi eval. can consider repeat ct and/or colonoscopy. Can consider cholecystectomy but would not do this until acute issues resolve.
--- NOTE | 2018-07-13 13:16 | CONS ---
DATE OF CONSULTATION: 07/13/2018 REASON FOR CONSULTATION: Acute cholecystitis, cholelithiasis. This is an emergency room consultation at the request of the emergency room physician. The patient was subsequently admitted to the medical floor, is being seen and examined there. BRIEF HISTORY: This is a 38-year-old male who for the past 2 weeks has been having abdominal pain and diarrhea. He had an extensive workup of this including a CAT scan which showed cholelithiasis, an upper endoscopy which showed gastritis. He had a HIDA scan which was negative and an ultrasound which showed a gallbladder with stones. Patient continued with diarrhea and pain and returned to the hospital for an additional workup. This time he had an ultrasound which showed that the gallbladder was thick, and the radiologist describes acute cholecystitis. Patient's symptoms are periumbilical pain with diarrhea. He had 10 episodes yesterday. He was placed on IV antibiotic Rocephin after being given Zosyn in the emergency room. PAST MEDICAL HISTORY: Significant for peptic ulcer disease, diabetes, and Njeoo-Vzbmtazwg-Tdxyx cardiac abnormality. PAST SURGICAL HISTORY: Includes tonsillectomy and arthroscopy. SOCIAL HISTORY: Is negative for alcohol, negative for tobacco. MEDICATIONS: Home medications include Reglan, Protonix, metformin, and insulin. FAMILY HISTORY: Significant for gallbladder disease. ALLERGIES: He has no known drug allergies. REVIEW OF SYSTEMS: General: Denies fatigue or malaise. Cardiac: Denies chest pain or palpitations. Respiratory: Denies shortness of breath or wheeze. Gastrointestinal: As in HPI. Denies blood in his stool. Admits to vomiting before. Denies blood in his vomit. He states that his diarrhea is mostly liquid and not mucus. He denies recent weight loss. Genitourinary: Denies dysuria. Musculoskeletal: Denies joint pain. Psychiatric: Denies depression, anxiety, hearing voices. PHYSICAL EXAMINATION: General: This is an obese 38-year-old male in no distress. Vital Signs: He is afebrile. His vital signs are stable. HEENT: Head is normocephalic. Sclerae are anicteric. Neck: Supple. Chest: Clear. Abdomen: Soft. It is mildly distended. There are no surgical scars. He has mild generalized tenderness without rebound or guarding. Extremities: No edema. LABORATORY: White blood cell count is 10.6 today with low neutrophils but elevated eosinophils. His chemistries are unremarkable. He has 2+ protein in his urine. His imaging is as in HPI. ASSESSMENT: This is a 38-year-old male with now several weeks of abdominal pain, diarrhea, occasional vomiting. After an extensive workup, continues to have symptoms. His gallbladder now appears to be thickened, and therefore the radiologist feels this is acute cholecystitis; however clinically, with diarrhea and periumbilical pain, this is unlikely. I will repeat the HIDA scan to confirm that it is not acute cholecystitis, although there is a possibility of false positive since he has not eaten much. If HIDA confirms that this is not acute cholecystitis, the patient could consider elective cholecystectomy. That should only be done after his acute problem is resolved. Recommend gastroenterology evaluation where the patient may benefit from a colonoscopy or possibly even a repeat CAT scan. On his initial CAT scan, I have reviewed it and the appendix appears to be normal, and there is no inflammatory process, so it is very unlikely that he had appendicitis last week, and it is also unlikely that he would have it now. At this point, pending results of the HIDA, can consider elective surgery, but likely this case will be managed by the gastroenterology service. DO OLMAN RODRÍGUEZ/[id number]
[2018-07-13] MEDS: VANCOMYCIN 250 MG/5 ML ORAL SOLUTION PO SCH ×2 (17:35→23:11)
[2018-07-13] MEDS ORDERED: VANCOMYCIN 250 MG/5 ML ORAL SOLUTION PO SCH (18:00)
[2018-07-13] MEDS ORDERED: PEG3350/SOD SULF,BICARB,CL/KCL 4,000 ML SOLN.RECON PO ONE (22:03)
--- NOTE | 2018-07-13 22:16 | CON.GI ---
Consult Consult Specialty:: Gastroenterology Referred by:: Dr Brown Reason for Consultation:: Diarrhea - History of Present Illness Chief Complaint: Abdominal cramps and diarrhea History of Present Illness: 38M with IDDM has had diarrhea for the past two weeks. He was admitted last week for this when it seemed to subside. He had an EGD with Dr Duvall which he tells me was unrevealing. He was discharged when his diarrhea appeared to subside but it persisted and been getting worse. It led to 10 BMs yesterday and caused lower abdominal cramps and vomiting. His C diff antigen is positive but his toxin is negative. There is no FH of IBD. He denies foreign travel or antibiotics prior to the onset of diarrhea. CT and sonogram reveal gallstones and some GB thickening but Hida scan filled the GB but did not reach the gut. His LFTs are however normal and his pain is not consistent with biliary colic. His differential reveals eosinophilia. - History Source History Provided By: Patient Limitations to Obtaining History: No Limitations - Past Medical History Cardio/Vascular: Yes: Other (Urvj-Uwjtzqrdg-Enrou Syndrome) Gastrointestinal: Yes: Gastritis Hepatobiliary: Yes: Cholelithiasis Musculoskeletal: Yes: Chronic low back pain (and knee pain) Endocrine: Yes: Diabetes Mellitus - Past Surgical History Past Surgical History: Yes: Arthrosocopy (left knee), Tonsillectomy, Upper Endoscopy - Alcohol/Substance Use Hx Alcohol Use: Yes (rare) History of Substance Use: reports: None - Smoking History Smoking history: Never smoked Have you smoked in the past 12 months: No Aproximately how many cigarettes per day: 0 - Social History Usual Living Arrangement: With Parent ADL: Independent 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 Place of : [facility] History of Recent Travel: No Home Medications - Allergies Allergies/Adverse Reactions: Allergies Allergy/AdvReac Type Severity Reaction Status Date / Time No Known Allergies Allergy Verified 07/12/18 14:24 - Home Medications Home Medications: Ambulatory Orders Metoclopramide HCl [Reglan] 5 mg PO TID #90 tablet 07/07/18 Pantoprazole Sodium [Protonix -] 40 mg PO DAILY #30 tablet.ec 07/07/18 Insulin Glargine,Hum.rec.anlog [Rex Rodriguez] 10 unit SQ DAILY 07/12/18 Metformin HCl [Metformin HCl ER] 1,000 mg PO BID 07/12/18 Family Disease History - Family Disease History Family Disease History: Diabetes: Father (Cholelithiasis, afib), Heart Disease: Father, Other: Father, Mother (htn; gallbladder out), Brother (Cholelthiasis) Review of Systems - Review of Systems Constitutional: reports: Loss of Appetite Eyes: reports: No Symptoms HENT: reports: No Symptoms Neck: reports: No Symptoms Cardiovascular: reports: No Symptoms Respiratory: reports: No Symptoms Gastrointestinal: reports: Abdominal Pain, Diarrhea, Vomiting Musculoskeletal: reports: No Symptoms Physical Exam-GI Vital Signs: Vital Signs Temperature 98.6 F 07/13/18 19:52 Pulse Rate 89 07/13/18 19:52 Respiratory Rate 18 07/13/18 20:00 Blood Pressure 128/80 07/13/18 19:52 O2 Sat by Pulse Oximetry (%) 98 07/13/18 09:00 CBC,CMP WBC 10.6 K/mm3 (4.0-10.0) H 07/13/18 06:00 RBC 4.72 M/mm3 (4.00-5.60) 07/13/18 06:00 Hgb 13.8 GM/dL (11.7-16.9) 07/13/18 06:00 Hct 40.2 % (35.4-49) 07/13/18 06:00 MCV 85.2 fl (80-96) 07/13/18 06:00 MCH 29.2 pg (25.7-33.7) 07/13/18 06:00 MCHC 34.3 g/dl (32.0-35.9) 07/13/18 06:00 RDW 13.3 % (11.9-15.9) 07/13/18 06:00 Plt Count 158 K/MM3 (134-434) 07/13/18 06:00 MPV 8.6 fl (7.5-11.1) 07/13/18 06:00 Absolute Neuts (auto) 4.4 K/mm3 (1.5-8.0) 07/13/18 06:00 Neutrophils % 42.0 % (42.8-82.8) L 07/13/18 06:00 Neutrophils % (Manual) 50.0 % (42.8-82.8) 07/13/18 06:00 Band Neutrophils % 0.0 % 07/13/18 06:00 Lymphocytes % 29.0 % (8-40) 07/13/18 06:00 Lymphocytes % (Manual) 19.4 % (8-40) 07/13/18 06:00 Monocytes % 6.7 % (3.8-10.2) 07/13/18 06:00 Monocytes % (Manual) 4 % (3.8-10.2) 07/13/18 06:00 Eosinophils % 22.2 % (0-4.5) H* 07/13/18 06:00 Eosinophils % (Manual) 19.4 % (0-4.5) H 07/13/18 06:00 Basophils % 0.1 % (0-2.0) 07/13/18 06:00 Basophils % (Manual) 0.0 % (0-2.0) 07/13/18 06:00 Myelocytes % (Man) 0 % (0-2) 07/13/18 06:00 Promyelocytes % (Man) 0 % (0-2) 07/13/18 06:00 Blast Cells % (Manual) 0 % (0-0) 07/13/18 06:00 Nucleated RBC % 0 % (0-0) 07/13/18 06:00 Metamyelocytes 0 % (0-2) 07/13/18 06:00 Hypochromia 0 07/13/18 06:00 Toxic Granulation 0 07/13/18 06:00 Dohle Bodies 0 07/13/18 06:00 Platelet Estimate Decreased 07/13/18 06:00 Polychromasia 0 07/13/18 06:00 Poikilocytosis 0 07/13/18 06:00 Basophilic Stippling 0 07/13/18 06:00 Anisocytosis 0 07/13/18 06:00 Microcytosis 0 07/13/18 06:00 Macrocytosis 0 07/13/18 06:00 Spherocytes 0 07/13/18 06:00 Sickle Cells 0 07/13/18 06:00 Target Cells 0 07/13/18 06:00 Tear Drop Cells 0 07/13/18 06:00 Ovalocytes 0 07/13/18 06:00 Stomatocytes 0 07/13/18 06:00 Helmet Cells 0 07/13/18 06:00 [place] Bodies 0 07/13/18 06:00 [place] Rings 0 07/13/18 06:00 [place] Cells 0 07/13/18 06:00 Acanthocytes (Spur) 0 07/13/18 06:00 Rouleaux 0 07/13/18 06:00 Fragmented RBCs 0 07/13/18 06:00 Schistocytes 0 07/13/18 06:00 Sodium 142 mmol/L (136-145) 07/13/18 06:00 Potassium 3.6 mmol/L (3.5-5.1) 07/13/18 06:00 Chloride 107 mmol/L (98-107) 07/13/18 06:00 Carbon Dioxide 28 mmol/L (21-32) 07/13/18 06:00 Anion Gap 7 MMOL/L (8-16) L 07/13/18 06:00 BUN 14 mg/dL (7-18) 07/13/18 06:00 Creatinine 0.8 mg/dL (0.55-1.3) 07/13/18 06:00 Creat Clearance w eGFR > 60 (>60) 07/13/18 06:00 Random Glucose 85 mg/dL (74-106) 07/13/18 06:00 Lactic Acid 0.8 mmol/L (0.4-2.0) 07/13/18 10:23 Calcium 8.1 mg/dL (8.5-10.1) L 07/13/18 06:00 Magnesium 2.4 mg/dL (1.8-2.4) 07/13/18 06:00 Total Bilirubin 0.8 mg/dL (0.2-1) 07/13/18 06:00 AST 19 U/L (15-37) 07/13/18 06:00 ALT 34 U/L (13-61) 07/13/18 06:00 Alkaline Phosphatase 21 U/L (45-117) L 07/13/18 06:00 Total Protein 5.2 g/dl (6.4-8.2) L 07/13/18 06:00 Albumin 3.1 g/dl (3.4-5.0) L 07/13/18 06:00 Lipase 92 U/L (73-393) 07/12/18 14:25 Current Medications Generic Name Dose Route Start Last Admin Trade Name Ja PRN Reason Stop Dose Admin Potassium Chloride/Dextrose/Sod Cl 10 meq in 1,000 mls @ 100 mls/hr 07/13/18 10:45 07/13/18 17:10 D5-1/2ns+10 Meq Kcl - IV 100 mls/hr ASDIR SCOTTY Administration Morphine Sulfate 2 mg 07/12/18 20:17 Morphine Sulfate IVPUSH Q4H PRN PAIN LEVEL 4 - 6 Ondansetron HCl 4 mg 07/13/18 11:44 Zofran Injection IVPUSH Q6H PRN NAUSEA AND/OR VOMITING Pantoprazole Sodium 40 mg 07/13/18 10:00 07/13/18 10:58 Protonix Iv IVPUSH 40 mg DAILY SCOTTY Administration Vancomycin HCl 125 mg 07/13/18 18:00 07/13/18 17:35 Vancomycin Oral Solution PO 125 mg Q6HPO SCOTTY Administration Constitutional: Yes: Calm Eyes: Yes: Conjunctiva Clear HENT: Yes: Atraumatic Neck: Yes: Supple Cardiovascular: Yes: Regular Rate and Rhythm Respiratory: Yes: CTA Bilaterally ...Auscultate: Yes: Hyperactive Bowel Sounds ...Palpate: Yes: Soft, Other (nontender) ...Rectal Exam: Yes: Guaiac Positive (loose brown g positive stool) Edema: No Peripheral Pulses WNL: Yes Neurological: Yes: Alert, Oriented Labs: CBC, BMP 07/13/18 06:00 07/13/18 06:00 INR, PTT INR 1.17 (0.83-1.09) H 07/13/18 06:00 Problem List - Problems (1) Diarrhea Assessment/Plan: Although I believe that will prove to be an infectious colitis I do not believe that is due to C diff. I have therefore advised a sigmoidoscopy and possible colonoscopy if the colon is empty enough. I have informed Steven of the potential for such complications as perforation and hemorrhage. He has signed an informed consent. Finding pseudomembranes would support C diff as the etiology. Code(s): R19.7 - DIARRHEA, UNSPECIFIED Qualifiers: Diarrhea type: unspecified type Qualified Code(s): R19.7 - Diarrhea, unspecified (2) Diabetes 1.5, managed as type 1 Code(s): E10.9 - TYPE 1 DIABETES MELLITUS WITHOUT COMPLICATIONS (3) Eosinophilia Code(s): D72.1 - EOSINOPHILIA (4) Calculus of gallbladder without cholecystitis without obstruction Assessment/Plan: I doubt cholecystitis and cholangitis given the normal LFTs and Hida. Code(s): K80.20 - CALCULUS OF GALLBLADDER W/O CHOLECYSTITIS W/O OBSTRUCTION (5) Diakp-Txtfdmxdn-Vpasv (WPW) syndrome Code(s): I45.6 - PRE-EXCITATION SYNDROME Assessment/Plan Flex sig or possible full colonoscopy tomorrow, unprepped for infectious colitis Doubt IBD and GB disease
[2018-07-14] MEDS: D5-1/2NS+10 MEQ KCL - 10 MEQ/1,000 ML INFUS.BAG IV SCH (04:20)
[2018-07-14] MEDS: VANCOMYCIN 250 MG/5 ML ORAL SOLUTION PO SCH (05:49)
[2018-07-14 08:28] LABS: BASO % 0.2 % (0-2.0); EOS % 30.3 % (0-4.5); HEMATOCRIT 39.7 % (35.4-49); HEMOGLOBIN 13.6 GM/dL (11.7-16.9); LYMPH % 25.2 % (8-40); MCHC 34.2 g/dl (32.0-35.9); MEAN CELL VOLUME 84.8 fl (80-96); MEAN PLT VOLUME 8.6 fl (7.5-11.1); MONO % 6.3 % (3.8-10.2); PLATELET COUNT 162 K/MM3 (134-434); RBC 4.67 M/mm3 (4.00-5.60); RDW 13.2 % (11.9-15.9); WHITE BLOOD COUNT 10.1 K/mm3 (4.0-10.0)
[2018-07-14 08:42] LABS: BILIRUBIN,DIRECT 0.2 mg/dL (0.0-0.2); BILIRUBIN,TOTAL 0.7 mg/dL (0.2-1); TOT PROT 5.2 g/dl (6.4-8.2)
[2018-07-14 09:08] LABS: ANION GAP 11 MMOL/L (8-16); BLOOD UREA NITROGEN 8 mg/dL (7-18); CALCIUM 8.1 mg/dL (8.5-10.1); CHLORIDE 107 mmol/L (98-107); CO2 27 mmol/L (21-32); CREATININE 0.7 mg/dL (0.55-1.3); GLUCOSE,RANDOM 100 mg/dL (74-106); MAGNESIUM 2.2 mg/dL (1.8-2.4); POTASSIUM 3.6 mmol/L (3.5-5.1); SODIUM 144 mmol/L (136-145)
--- NOTE | 2018-07-14 09:59 | PN ---
Progress Note (short form) - Note Progress Note: WOUND CARE TECHNICIAN Bowen/Hospitalist to document today. For sigmoidoscopy. Eosinophils 30% !! Stool O and P pending. CDiff antigen + but toxin -
--- NOTE | 2018-07-14 10:25 | PN ---
Progress Note (short form) - Note Progress Note: GI Procedure Note: Please see partial colonoscopy report. Steven has paradoxical diarrhea due to fecal impaction. Can discharge after lunch in Miralax. Problem List - Problems (1) Diarrhea Code(s): R19.7 - DIARRHEA, UNSPECIFIED Qualifiers: Diarrhea type: unspecified type Qualified Code(s): R19.7 - Diarrhea, unspecified (2) Diabetes 1.5, managed as type 1 Code(s): E10.9 - TYPE 1 DIABETES MELLITUS WITHOUT COMPLICATIONS (3) Eosinophilia Code(s): D72.1 - EOSINOPHILIA (4) Calculus of gallbladder without cholecystitis without obstruction Code(s): K80.20 - CALCULUS OF GALLBLADDER W/O CHOLECYSTITIS W/O OBSTRUCTION (5) Tjdvr-Eysocvhqr-Kqtdf (WPW) syndrome Code(s): I45.6 - PRE-EXCITATION SYNDROME
--- NOTE | 2018-07-14 10:34 | PN ---
Progress Note (short form) - Note Progress Note: GI Note: Cancel C diff quarantining Problem List - Problems (1) Diarrhea Code(s): R19.7 - DIARRHEA, UNSPECIFIED Qualifiers: Diarrhea type: unspecified type Qualified Code(s): R19.7 - Diarrhea, unspecified (2) Diabetes 1.5, managed as type 1 Code(s): E10.9 - TYPE 1 DIABETES MELLITUS WITHOUT COMPLICATIONS (3) Eosinophilia Code(s): D72.1 - EOSINOPHILIA (4) Calculus of gallbladder without cholecystitis without obstruction Code(s): K80.20 - CALCULUS OF GALLBLADDER W/O CHOLECYSTITIS W/O OBSTRUCTION (5) Okacy-Zvgbrtgmp-Dznzp (WPW) syndrome Code(s): I45.6 - PRE-EXCITATION SYNDROME
--- NOTE | 2018-07-14 10:46 | PN ---
Progress Note, Physician - Current Medication List Current Medications: Active Medications Lactobacillus Acidophilus (Bacid -) 1 tab PO DAILY SCOTTY Morphine Sulfate (Morphine Sulfate) 2 mg IVPUSH Q4H PRN PRN Reason: PAIN LEVEL 4 - 6 Ondansetron HCl (Zofran Injection) 4 mg IVPUSH Q6H PRN PRN Reason: NAUSEA AND/OR VOMITING Polyethylene Glycol (Miralax (For Daily Use) -) 17 gm PO TID SCOTTY - Objective Vital Signs: Vital Signs Temperature 97.8 F 07/14/18 10:02 Pulse Rate 78 07/14/18 10:35 Respiratory Rate 14 07/14/18 10:35 Blood Pressure 136/87 07/14/18 10:35 O2 Sat by Pulse Oximetry (%) 99 07/14/18 10:35 Labs: CBC, BMP 07/14/18 06:15 07/14/18 06:15 INR, PTT INR 1.17 (0.83-1.09) H 07/13/18 06:00 Problem List - Problems (1) Diarrhea Code(s): R19.7 - DIARRHEA, UNSPECIFIED Qualifiers: Diarrhea type: unspecified type Qualified Code(s): R19.7 - Diarrhea, unspecified (2) Fecal impaction Code(s): K56.41 - FECAL IMPACTION Assessment/Plan (1) Diarrhea Assessment/Plan: GI consult appreciated s/p colonoscopy- diarrhea 2/2 fecal impaction vanco stopped miralax regular diet Code(s): R19.7 - DIARRHEA, UNSPECIFIED Qualifiers: Diarrhea type: unspecified type Qualified Code(s): R19.7 - Diarrhea, unspecified (2) Abdominal pain Assessment/Plan: improved Code(s): R10.9 - UNSPECIFIED ABDOMINAL PAIN Qualifiers: Abdominal location: generalized Qualified Code(s): R10.84 - Generalized abdominal pain (3) Acute cholecystitis Assessment/Plan: HIDA scan without acute findings surgery consult appreciated continue outpt follow up Code(s): K81.0 - ACUTE CHOLECYSTITIS (4) Leukocytosis Assessment/Plan: improved Code(s): D72.829 - ELEVATED WHITE BLOOD CELL COUNT, UNSPECIFIED (5) Hypokalemia Assessment/Plan: improved Code(s): E87.6 - HYPOKALEMIA (6) Eosinophilia Assessment/Plan: 2/2 allergies/ acute infection? strongiloides ab pending stool o&p pending ID consulted Code(s): D72.1 - EOSINOPHILIA
[2018-07-14 11:08] LABS: ANISOCYTOSIS 0; MACROCYTOSIS 0; PLATELET ESTIMATE DECREASED
[2018-07-14] MEDS: LACTOBACILLUS ACIDOPHILUS 1 TABLET PO SCH (11:38)
--- NOTE | 2018-07-14 13:19 | PN ---
Progress Note (short form) - Note Progress Note: ID consult dictated Orders written Observe off antibiotics
[2018-07-14] MEDS: POLYETHYLENE GLYCOL 3350 119 GM BTL PO SCH ×2 (13:43→23:40)
--- NOTE | 2018-07-14 13:56 | DS ---
Physical Examination Vital Signs: Vital Signs Temperature 97.8 F 07/14/18 10:02 Pulse Rate 78 07/14/18 10:35 Respiratory Rate 14 07/14/18 10:35 Blood Pressure 136/87 07/14/18 10:35 O2 Sat by Pulse Oximetry (%) 99 07/14/18 10:35 Constitutional: Yes: Well Nourished, No Distress, Calm Cardiovascular: Yes: WNL, Regular Rate and Rhythm. No: Murmur Respiratory: Yes: WNL, Regular, CTA Bilaterally. No: Accessory Muscle Use, Rhonchi, SOB, Tachypnea, Wheezes Gastrointestinal: Yes: WNL, Normal Bowel Sounds, Soft. No: Distention, Tenderness Renal/: Yes: WNL Extremities: Yes: WNL Edema: No Neurological: Yes: WNL, Alert, Oriented Psychiatric: Yes: WNL, Alert, Oriented Labs: CBC, BMP 07/14/18 06:15 07/14/18 06:15 Discharge Summary Reason For Visit: TYPE 2 DM/DIARRHEA/NAUSEA & VOMITING Current Active Problems Acute cholecystitis (Acute) Cholecystitis (Acute) Diabetes 1.5, managed as type 1 (Acute) Diarrhea (Acute) Eosinophilia (Acute) Fecal impaction (Acute) Hypokalemia (Acute) Leukocytosis (Acute) Hospital Course: 38 year old male admitted for evaluation of diarrhea, abd pain. Pt was recently discharged last week for cholelithiasis. Abd US this admission revealed gall stone and mild cholecystitis, surgery consult appreciated, HIDA scan neg. No further action at the moment. Cdiff antigen positive, toxin neg. Pt underwent colonoscopy, revealed fecal impaction. Appears paradoxical diarrhea 2/2 fecal impaction. GI has cleared patient for discharge. Persistent eosinophils elevation noted. All infectious work up sent, case discussed with ID, advises outpt follow up. Otherwise , pt is in no acute distress, vitals stable, tolerating regular diet. Miralax to prevent constipation. Follow up outpt as directed. 35 minutes spent in discharge planning Condition: Good - Instructions Diet, Activity, Other Instructions: drink adequate liquids, fruits/veggies high fiber diet continue reglan miralax daily to prevent constipation all tests sent, pending- please follow up outpt Referrals: Larry Ricketts MD [Staff Physician] - 1 Week Steven Brown MD [Primary Care Provider] - 1 Week Disposition: HOME - Home Medications Comprehensive Discharge Medication List: Ambulatory Orders RX: Pantoprazole Sodium [Protonix -] 40 mg PO DAILY #30 tablet.ec 07/07/18 RX: Insulin Glargine,Hum.rec.anlog [Rex Rodriguez] 10 unit SQ DAILY 07/12/18 RX: Metformin HCl [Metformin HCl ER] 1,000 mg PO BID 07/12/18 RX: Polyethylene Glycol 3350 [Miralax 119 gm Btl -] 17 gm PO BID #1 bottle 07/14
--- NOTE | 2018-07-14 15:13 | CONS ---
DATE OF CONSULTATION: 07/14/2018 HISTORY OF PRESENT ILLNESS: The patient is a 38-year-old diabetic male evaluated for diarrhea and eosinophilia. The patient was recently hospitalized at [facility] [place] from July 04 through July 07, 2018 after presenting with nausea and vomiting. He was found to have cholelithiasis with no sonographic evidence of acute cholecystitis. A HIDA scan was performed and the gallbladder was visualized. He was discharged home with Protonix and Reglan. It does not appear that the patient was treated with antibiotics during that admission, nor was he discharged on antibiotics. At home, he continued to complain of abdominal discomfort, nausea, vomiting and profuse diarrhea. He returned to the emergency room, where he was evaluated. A Clostridium difficile antigen was positive, toxin negative. The patient underwent a sigmoidoscopy today. The verbal report was that he had fecal impaction. The patient continues to have loose bowel movements. He denies any bleeding. No davin red blood or melena. He denies any hematemesis or vomiting of davin red blood. He has had no fever or chills. The patient states that his 5-year-old nephew had diarrhea. He lives with his nephew and has shared meals. He denies any recent travel; he has not left the country in 17 years. He denies any recent antibiotic therapy. PAST MEDICAL HISTORY: Positive for diabetes mellitus and Ugvlu-Anzbkphes-Ypovs. ALLERGIES: No known drug allergies. MEDICATIONS: Reglan, Protonix and metformin. SOCIAL HISTORY: As per HPI. He denies tobacco. Occasional ETOH. No history of illicit drug use. REVIEW OF SYSTEMS: Neurologic: No loss of consciousness, seizure activity or focal weakness. Cardiac: Negative for chest pain or palpitations. Respiratory: Negative for cough or sputum production. Gastrointestinal: As per HPI. Genitourinary: Negative for urinary tract infection. LABORATORY DATA: White count 10.1, 38 neutrophils, 6 monocytes, 30 eosinophils. BUN 8, creatinine 0.7. PHYSICAL EXAMINATION: General: The patient is awake and alert. He is in no acute distress. Vital Signs: Temperature 97.8, pulse 78 and regular, blood pressure 136/87, respiratory rate 14 per minute. HEENT:: Sclerae anicteric. Heart: Heart sounds S1, S2. Lungs: Clear. Abdomen: Positive bowel sounds, soft. No tenderness elicited. No masses, rebound or rigidity. Extremities: Negative for edema. No rash is noted. IMPRESSION: 1. Diarrheal illness. 2. Eosinophilia. 3. Cholelithiasis. There are no clear risk factors for Clostridium difficile colitis. There is no documented evidence of recent antibiotic use. On sigmoidoscopy, the patient was found to have fecal impaction with paradoxical diarrhea; no evidence of pseudomembranes. The etiology of his eosinophilia is unclear. PLAN: 1. Will obtain additional studies for stool culture, ova and parasite, Giardia, isospora, Cryptosporidium, rotavirus and norovirus. Obtain Strongyloides antibody in light of eosinophilia. Follow up a CBC as an outpatient with differential. If workup is negative and eosinophilia persists, would obtain hematology evaluation. DEBBIE EATON M.D. [id number]
[2018-07-14] MEDS: PANTOPRAZOLE SODIUM 40 MG VIAL IVPUSH SCH (16:35)
[2018-07-15] MEDS: POLYETHYLENE GLYCOL 3350 119 GM BTL PO SCH (06:47)
[2018-07-15] MEDS: LACTOBACILLUS ACIDOPHILUS 1 TABLET PO SCH (09:46)
[2018-07-15 10:20] VITALS: BP 139/85; PULSE 84; TEMP 98.1
[2018-07-15 11:16] LABS: TRANSGLUTAMINASE IGA < 2 U/mL (0-3); TRANSGLUTAMINASE IGG < 2 U/mL (0-5)
--- NOTE | 2018-07-18 16:52 | PATH ---
Surgical Pathology Report Patient Name: TIMI MORELAND Med. Rec. #: [id number] /Age/Gender: 1980 (Age: 38) / M Account: [id number] Location: [facility] MED/SURG Taken: 07/14/2018 Received: 07/14/2018 Reported: 07/18/2018 Physicians: Laurent Villalpando M.D. Specimen(s) Received BX SIGMOID Clinical History Rule out microscopic colitis Final Diagnosis SIGMOID COLON, BIOPSY: POLYPOID COLONIC MUCOSA WITH SMALL LYMPHOID AGGREGATE. Electronically Signed Annabella Rodas M.D. Gross Description Received in formalin, labeled "biopsy sigmoid colon" are 4 salas, irregular portions of soft tissue ranging from 0.2-0.4 cm. in greatest dimension. The specimens are submitted in toto in one cassette. /07/14/201807/14/2018
[2018-07-18 18:14] LABS: ATYPICAL pANCA <1:20 titer (Neg:<1:20); C-ANCA <1:20 titer (Neg:<1:20); P-ANCA <1:20 titer (Neg:<1:20)
== END 2018-07-15 10:04 | disposition home or self-care (01) | DRG 392 ==
LOC: JER 14:18 → JERBED 19:30 → J8W 23:38
PROVIDERS: ADMIT Internal Medicine; ATTEND Internal Medicine
PROC: 0DBN8ZX Excision of Sigmoid Colon, Via Natural or Artificial Opening Endoscopic, Diagnostic (ICD-10-PCS; principal; 2018-07-14 11:15)
DX: R19.7 Diarrhea, unspecified (principal); K81.0 Acute cholecystitis; D72.1 Eosinophilia; I45.6 Pre-excitation syndrome; E87.6 Hypokalemia; K56.41 Fecal impaction; R10.84 Generalized abdominal pain; E11.9 Type 2 diabetes mellitus without complications; D72.829 Elevated white blood cell count, unspecified
CPT/HCPCS: 36415; 76705-TC; 78226-TC; 80048; 80053; 80076; 81003; 81015; 82962; 83516; 83520; 83605; 83690; 83735; 85025; 85610; 86140; 86256; 86671; 86682; 87045; 87046; 87177; 87186; 87205; 87207; 87209; 87324; 87328; 87329; 87449; 87493; 87798; 88305-TC; 90688; 93005; 93010; 99285-25; A9537; G0008; J7030

== ENCOUNTER 2021-11-07 18:30 | Emergency (ER) | payer BC ==
[2021-11-07 18:52] VITALS: BP 122/82; PULSE 84; TEMP 98.4; BMI 36.9
[2021-11-07] MEDS ORDERED: ACETAMINOPHEN 500 MG TABLET (FP) PO ONE (19:02)
[2021-11-07] MEDS ORDERED: ACETAMINOPHEN 500 MG TABLET (FP) ONE (19:03)
== END 2021-11-07 19:15 | disposition home or self-care (01) ==
LOC: FER 18:30
DX: U07.1 COVID-19 (principal)
CPT/HCPCS: 99283-25

== ENCOUNTER 2024-01-23 13:31 | Inpatient (IN) | payer BC ==
[2024-01-23] MEDS ORDERED: ACETAMINOPHEN INJECTION 100 ML IVPB ONE (15:01)
[2024-01-23] MEDS ORDERED: ONDANSETRON 4 MG/2 ML VIAL ONE (15:01)
[2024-01-23 15:13] LABS: HEMATOCRIT 53.1 % (35.4-49); HEMOGLOBIN 18.2 GM/dL (11.7-16.9); MCH 30.2 pg (25.7-33.7); MCHC 34.2 g/dl (32.0-35.9); MEAN CELL VOLUME 88.1 fl (80-96); MEAN PLT VOLUME 9.3 fl (7.5-11.1); PLATELET COUNT 201 10^3/uL (134-434); RBC 6.03 M/mm3 (4.00-5.60); RDW 14.1 % (11.9-15.9); WHITE BLOOD COUNT 23.1 K/mm3 (4.0-10.0)
[2024-01-23] MEDS: ONDANSETRON 4 MG/2 ML VIAL IVPUSH ONE (15:17)
[2024-01-23] MEDS: SODIUM CHLORIDE 0.9% 500 ML INFUS.BAG IV ONE ×2 (15:17→16:33)
[2024-01-23] MEDS: ACETAMINOPHEN 1000 MG/100 ML BAG IVPB ONE (15:17)
[2024-01-23 15:28] LABS: VENOUS BASE EXCESS -0.3 mmol/L (-2-2); VENOUS O2 SATURATION 22.2 % (70-80); VENOUS PCO2 48.8 mmHg (38-52); VENOUS PH 7.349 (7.310-7.410)
[2024-01-23 15:33] LABS: EPI CELLS 36 /uL (0-25.1); HYALINE CASTS 4 /uL (0-3.1); URINE APPEARANCE CLOUDY; URINE BACTERIA 5 /uL (0-1359); URINE BILIRUBIN NEGATIVE (NEGATIVE); URINE COLOR DK YELLOW; URINE GLUCOSE (UA) NEGATIVE (NEGATIVE); URINE KETONE TRACE (NEGATIVE); URINE LEUK ESTERASE NEGATIVE (NEGATIVE); URINE NITRITE NEGATIVE (NEGATIVE); URINE PROTEIN 2+ (NEGATIVE); URINE RBC 33 /uL (0-23.9); URINE WBC 44 /uL (0-25.8)
[2024-01-23 15:35] LABS: POTASSIUM 5.4 mmol/L (3.5-5.1)
[2024-01-23 15:38] LABS: ALBUMIN 4.5 g/dl (3.4-5.0)
[2024-01-23 15:41] LABS: CREATININE 2.1 mg/dL (0.55-1.3)
[2024-01-23 15:42] LABS: BILIRUBIN,TOTAL 1.2 mg/dL (0.2-1); TOT PROT 7.8 g/dl (6.4-8.2)
[2024-01-23 15:49] LABS: ANISOCYTOSIS 1+; MACROCYTOSIS 0
[2024-01-23] MEDS ORDERED: PIPERACILLIN/TAZOB 4.5 GM 4.5 GM/100 ML BAG IVPB ONE (16:08)
[2024-01-23] MEDS: PIPERACILLIN/TAZOB 4.5 GM 4.5 GM in DEXTROSE 5%-WATER 100 ML IVPB ONE (16:09)
[2024-01-23] MEDS: LACTATED RINGERS SOLUTION 1000 ML INFUS.BAG IV ONE ×2 (17:30→18:59)
[2024-01-23 19:26] LABS: POTASSIUM 4.9 mmol/L (3.5-5.1)
[2024-01-23 19:27] LABS: CALCIUM 8.5 mg/dL (8.5-10.1)
[2024-01-23 19:28] LABS: BLOOD UREA NITROGEN 25.6 mg/dL (7-18); MAGNESIUM 1.4 mg/dL (1.8-2.4)
[2024-01-23 19:31] LABS: CREATININE 2.2 mg/dL (0.55-1.3)
[2024-01-23] MEDS: VANCOMYCIN/WATER 2 GRAMS 2,000 MG/400 ML PIGGYBACK IVPB ONE (19:56)
[2024-01-23] MEDS: VANCOMYCIN 2,000 MG in DEXTROSE 5%-WATER - 500 ML IVPB ONE (20:16)
[2024-01-23] MEDS: MAGNESIUM SULFATE IN WATER 2 GM/50 ML IVPB IVPB ONE (21:14)
[2024-01-23] MEDS ORDERED: MAGNESIUM SULFATE IN WATER 2 GM/50 ML IVPB IVPB ONE (21:15)
[2024-01-23] MEDS ORDERED: NOREPINEPHRINE BITARTRATE 4 MG/4 ML ML IV ONE (22:03)
[2024-01-23] MEDS: NOREPINEPHRINE BITARTRATE 4,000 MCG in DEXTROSE 5%-WATER - 496 ML IV SCH (22:07)
[2024-01-23] MEDS: PANTOPRAZOLE SODIUM 40 MG VIAL IVPUSH SCH (22:07)
[2024-01-23] MEDS: INSULIN ASPART SLIDING SCALE (NOVOLOG) 1 VIAL SQ SCH (22:08)
[2024-01-23] MEDS: HEPARIN NA (PORCINE) 5,000 UNITS/ML 1ML VIAL SQ SCH (22:08)
[2024-01-23] MEDS: CHLORHEXIDINE GLUCONATE 4% CLEANSER FOR DECOLONIZATION TP SCH (22:08)
[2024-01-23] MEDS: MUPIROCIN 2% TOPICAL OINTMENT FOR DECOLONIZATION NS SCH (22:11)
[2024-01-23] MEDS: LACTATED RINGERS SOLUTION 1,000 ML/1,000 ML INFUS.BAG IV SCH (23:00)
[2024-01-24 05:48] LABS: BASO % 0.4 % (0-2.0); HEMATOCRIT 43.6 % (35.4-49); HEMOGLOBIN 14.8 GM/dL (11.7-16.9); LYMPH % 19.8 % (8-40); MCH 29.6 pg (25.7-33.7); MCHC 33.9 g/dl (32.0-35.9); MEAN CELL VOLUME 87.1 fl (80-96); MEAN PLT VOLUME 8.9 fl (7.5-11.1); MONO % 6.7 % (3.8-10.2); NEUT % 71.1 % (42.8-82.8); PLATELET COUNT 173 10^3/uL (134-434); RDW 14.7 % (11.9-15.9); WHITE BLOOD COUNT 14.1 K/mm3 (4.0-10.0)
[2024-01-24 05:57] LABS: INR 1.27 (0.83-1.09); PROTHROMBIN TIME (PATIENT) 14.2 SEC (9.7-13.0)
[2024-01-24 06:00] LABS: ACTIVATED PTT 28.4 SECONDS (25.2-36.5)
[2024-01-24 06:09] LABS: POTASSIUM 4.1 mmol/L (3.5-5.1)
[2024-01-24 06:10] LABS: CALCIUM 8.6 mg/dL (8.5-10.1)
[2024-01-24 06:11] LABS: BLOOD UREA NITROGEN 20.3 mg/dL (7-18)
[2024-01-24 06:13] LABS: CREATININE 1.3 mg/dL (0.55-1.3); PHOSPHOROUS 3.7 mg/dL (2.5-4.9)
[2024-01-24 06:16] LABS: BILIRUBIN,TOTAL 1.2 mg/dL (0.2-1)
[2024-01-24] MEDS: DEXTROSE 5%-LACTATED RINGERS 1,000 ML IV SCH (06:52)
[2024-01-24 07:01] LABS: ALBUMIN 3.3 g/dl (3.4-5.0); TOT PROT 5.7 g/dl (6.4-8.2)
[2024-01-24] MEDS: ACETAMINOPHEN 1000 MG/100 ML BAG IVPB ONE (07:43)
[2024-01-24] MEDS: CEFTRIAXONE 1 GM in DEXTROSE 5%-WATER - 50 ML IVPB SCH (10:12)
[2024-01-24] MEDS: HEPARIN NA (PORCINE) 5,000 UNITS/ML 1ML VIAL SQ SCH (15:10)
[2024-01-24 15:42] VITALS: BMI 37.0
[2024-01-24] MEDS: INSULIN ASPART SLIDING SCALE (NOVOLOG) 1 VIAL SQ SCH (16:08)
[2024-01-24] MEDS: PANTOPRAZOLE SODIUM 40 MG VIAL IVPUSH SCH (21:35)
[2024-01-25 08:54] LABS: HEMATOCRIT 45.5 % (35.4-49); HEMOGLOBIN 15.5 GM/dL (11.7-16.9); MCH 29.9 pg (25.7-33.7); MEAN CELL VOLUME 87.9 fl (80-96); MEAN PLT VOLUME 8.9 fl (7.5-11.1); PLATELET COUNT 165 10^3/uL (134-434); RBC 5.18 M/mm3 (4.00-5.60); RDW 14.4 % (11.9-15.9); WHITE BLOOD COUNT 8.5 K/mm3 (4.0-10.0)
[2024-01-25 09:09] LABS: POTASSIUM 4.6 mmol/L (3.5-5.1)
[2024-01-25 09:17] LABS: ALBUMIN 3.8 g/dl (3.4-5.0); BLOOD UREA NITROGEN 14.4 mg/dL (7-18); CALCIUM 9.1 mg/dL (8.5-10.1); MAGNESIUM 2.1 mg/dL (1.8-2.4)
[2024-01-25] MEDS: AZITHROMYCIN IVPB 500 MG/250 ML BAG IVPB SCH (09:18)
[2024-01-25] MEDS: CEFTRIAXONE 1 GM in DEXTROSE 5%-WATER - 50 ML IVPB SCH (09:18)
[2024-01-25 09:19] LABS: CREATININE 1.1 mg/dL (0.55-1.3)
[2024-01-25 09:20] LABS: BILIRUBIN,TOTAL 0.8 mg/dL (0.2-1); TOT PROT 6.6 g/dl (6.4-8.2)
[2024-01-25] MEDS: ONDANSETRON 4 MG/2 ML VIAL IVPUSH PRN (11:17)
[2024-01-25] MEDS: ACETAMINOPHEN 1000 MG/100 ML BAG IVPB ONE (12:15)
[2024-01-25] MEDS: SODIUM CHLORIDE 0.45% 1,000 ML IV SCH (12:29)
[2024-01-26] MEDS: LOSARTAN POTASSIUM 50 MG TABLET PO SCH (10:13)
[2024-01-26 12:53] LABS: POTASSIUM 4.8 mmol/L (3.5-5.1)
[2024-01-26 12:59] LABS: BASO % 0.7 % (0-2.0); EOS % 3.5 % (0-4.5); HEMATOCRIT 45.9 % (35.4-49); HEMOGLOBIN 15.6 GM/dL (11.7-16.9); LYMPH % 24.2 % (8-40); MCH 29.7 pg (25.7-33.7); MEAN CELL VOLUME 87.1 fl (80-96); MEAN PLT VOLUME 9.3 fl (7.5-11.1); MONO % 6.1 % (3.8-10.2); NEUT % 65.5 % (42.8-82.8); PLATELET COUNT 180 10^3/uL (134-434); RBC 5.27 M/mm3 (4.00-5.60); RDW 14.2 % (11.9-15.9); WHITE BLOOD COUNT 6.1 K/mm3 (4.0-10.0)
[2024-01-26 13:06] LABS: ALBUMIN 3.9 g/dl (3.4-5.0); BLOOD UREA NITROGEN 13.3 mg/dL (7-18); CALCIUM 9.6 mg/dL (8.5-10.1)
[2024-01-26 13:11] LABS: BILIRUBIN,TOTAL 0.6 mg/dL (0.2-1); TOT PROT 6.7 g/dl (6.4-8.2)
[2024-01-26 16:16] VITALS: BP 137/73; PULSE 77; RESP 18; TEMP 97.8
== END 2024-01-26 17:38 | disposition home or self-care (01) | DRG 74 ==
LOC: JER 13:31 → JERBED 18:12 → JICU 21:49 → J5S 01-24 14:19
PROVIDERS: ADMIT Internal Medicine Pulmonary Disease
DX: E11.43 Type 2 diabetes mellitus with diabetic autonomic (poly)neuropathy (principal); A08.39 Other viral enteritis; N17.9 Acute kidney failure, unspecified; I95.9 Hypotension, unspecified; K31.84 Gastroparesis; I45.6 Pre-excitation syndrome; T50.995A Adverse effect of other drugs, medicaments and biological substances, initial encounter; E86.0 Dehydration; R80.9 Proteinuria, unspecified; M54.50 Low back pain, unspecified; R11.2 Nausea with vomiting, unspecified; D72.829 Elevated white blood cell count, unspecified; R19.7 Diarrhea, unspecified; R10.84 Generalized abdominal pain
CPT/HCPCS: 0241U-QW; 36415; 71045-TC-FY; 74176-TC; 76775-TC; 80048; 80053; 81003; 82248; 82570; 82728; 82803; 82962; 83036; 83540; 83550; 83605; 83690; 83735; 83935; 84100; 84300; 84484; 85025; 85027; 85610; 85651; 85730; 86140; 86850; 86900; 86901; 87040; 87086; 87899; 93005; 93010; 93306-TC; 93308; 99285-25; J0131; J1644